=== PATIENT | female | born 1960 | race Caucasian/White ===

== ENCOUNTER 2016-06-25 12:45 | Inpatient (IN) | payer BC ==
[~2016-06-25] VITALS: Ht 170.2 cm; Wt 103.1 kg
[2016-06-25 13:45] LABS: BASO % 1 % (0-3); EOS % 1 % (0-3); HEMATOCRIT 44.1 % (36.0-47.0); LYMPH # 1.6 x10^3/uL (1.0-4.8); LYMPH % 26 % (24-48); MEAN CORPUSCULAR HEMOGLOBIN 31 pg (25-35); MEAN CORPUSCULAR HGB CONC 34 g/dL (31-37); MEAN CORPUSCULAR VOLUME 92 fL (79-100); MONO % 11 % (0-9); NEUT % 62 % (31-73); PLATELET COUNT 186 x10^3/uL (140-400); RED BLOOD COUNT 4.81 x10^6/uL (3.50-5.40); RED CELL DISTRIBUTION WIDTH 13.2 % (11.5-14.5); WHITE BLOOD COUNT 6.2 x10^3/uL (4.0-11.0)
[2016-06-25] MEDS ORDERED: PANTOPRAZOLE IV PUSH 40 MG VIAL. IVP ONE (13:45)
[2016-06-25] MEDS ORDERED: IV NORMAL SALINE 1000ML BAG 1,000 ML IV ONE (13:45)
--- NOTE | 2016-06-25 13:50 | PHYS DOC ---
Past Medical History Past Medical History: Arthritis, Depression, Diabetes-Type II, GERD, High Cholesterol, Hypertension, Hypothyroid, Other Additional Past Medical Histor: neuropathy; bond; Past Surgical History: Cholecystectomy, Other Additional Past Surgical Histo: right toe amputation Alcohol Use: Rarely Drug Use: None Adult General Chief Complaint Chief Complaint: BLOODY STOOL HPI HPI 56-year-old female who states she's had jet black stools for the last 12-24 hours with significant lower abdominal pain. She denies any shortness of breath or lightheadedness. She states she has never had this before. She does not take any blood thinners. She states she had a colonoscopy approximately a year ago that was normal. She denies any nausea or vomiting. She has not eaten or drank today. She denies any significant abdominal surgery. She has history of Galindo' s disease and has history of bilateral stents placed in her common iliacs. Review of Systems Review of Systems Constitutional: Denies fever or chills [] Eyes: Denies change in visual acuity, redness, or eye pain [] HENT: Denies nasal congestion or sore throat [] Respiratory: Denies cough or shortness of breath [] Cardiovascular: No additional information not addressed in HPI [] GI: Has abdominal pain, denies nausea, denies vomiting, denies bloody stools or diarrhea [] : Denies dysuria or hematuria [] Musculoskeletal: Denies back pain or joint pain [] Integument: Denies rash or skin lesions [] Neurologic: Denies headache, focal weakness or sensory changes [] Endocrine: Denies polyuria or polydipsia [] Current Medications Current Medications Current Medications Medications (Trade) Dose Ordered Sig/Adrianna Start Time Stop Time Status Last Admin Dose Admin Fentanyl Citrate (Fentanyl 2ml Vial) 50 mcg 1X ONCE 06/25/16 14:15 06/25/16 14:16 DC 06/25/16 14:31 50 MCG Iohexol (Omnipaque 300 Mg/ml) 75 ml 1X ONCE 06/25/16 14:15 06/25/16 14:16 DC 06/25/16 14:15 75 ML Pantoprazole Sodium (Protonix Vial) 80 mg 1X ONCE 06/25/16 13:45 06/25/16 13:46 DC 06/25/16 14:00 80 MG Sodium Chloride (Iv Sodium Chloride 0.9% 1000ml Bag) 1,000 ml @ 1,000 mls/hr 1X ONCE 06/25/16 13:45 06/25/16 14:44 DC 06/25/16 14:00 1,000 MLS/HR Allergies Allergies Allergies Coded Allergies Type Severity Reaction Last Updated Verified Sulfa (Sulfonamide Antibiotics) Allergy Intermediate hives 06/25/16 Yes Physical Exam Physical Exam Constitutional: Well developed, well nourished, no acute distress, non-toxic appearance. [] HENT: Normocephalic, atraumatic, bilateral external ears normal, oropharynx moist, no oral exudates, nose normal. [] Eyes: PERRLA, EOMI, conjunctiva normal, no discharge. [] Neck: Normal range of motion, no tenderness, supple, no stridor. [] Cardiovascular:Heart rate regular rhythm, no murmur [] Lungs & Thorax: Bilateral breath sounds clear to auscultation [] Abdomen: Bowel sounds normal, soft, lower abdominal tenderness, no masses, no pulsatile masses. [] Skin: Warm, dry, no erythema, no rash. [] Back: No tenderness, no CVA tenderness. [] Extremities: No tenderness, no cyanosis, no clubbing, ROM intact, no edema. [] Neurologic: Alert and oriented X 3, normal motor function, normal sensory function, no focal deficits noted. [] Psychologic: Affect normal, judgement normal, mood normal. [] Current Patient Data Vital Signs Vital Signs Date Time Temp Pulse Resp B/P Pulse Ox O2 Delivery O2 Flow Rate FiO2 06/25/16 12:52 97.4 91 20 160/87 98 Room Air 97.4 Lab Values Laboratory Tests Test 06/25/16 13:20 06/25/16 13:40 White Blood Count 6.2x10^3/uL (4.0-11.0) Red Blood Count 4.81x10^6/uL (3.50-5.40) Hemoglobin 15.0g/dL (12.0-15.5) Hematocrit 44.1% (36.0-47.0) Mean Corpuscular Volume 92fL (79-100) Mean Corpuscular Hemoglobin 31pg (25-35) Mean Corpuscular Hemoglobin Concent 34g/dL (31-37) Red Cell Distribution Width 13.2% (11.5-14.5) Platelet Count 186x10^3/uL (140-400) Neutrophils (%) (Auto) 62% (31-73) Lymphocytes (%) (Auto) 26% (24-48) Monocytes (%) (Auto) 11% (0-9) H Eosinophils (%) (Auto) 1% (0-3) Basophils (%) (Auto) 1% (0-3) Neutrophils # (Auto) 3.8x10^3uL (1.8-7.7) Lymphocytes # (Auto) 1.6x10^3/uL (1.0-4.8) Monocytes # (Auto) 0.7x10^3/uL (0.0-1.1) Eosinophils # (Auto) 0.0x10^3/uL (0.0-0.7) Basophils # (Auto) 0.0x10^3/uL (0.0-0.2) Sodium Level 138mmol/L (136-145) Potassium Level 3.5mmol/L (3.5-5.1) Chloride Level 99mmol/L (98-107) Carbon Dioxide Level 29mmol/L (21-32) Anion Gap 10 (6-14) Blood Urea Nitrogen 8mg/dL (7-20) Creatinine 0.9mg/dL (0.6-1.0) Estimated GFR (Cockcroft-Gault) 65.2 Glucose Level 109mg/dL (70-99) H Lactic Acid Level 1.8mmol/L (0.4-2.0) Calcium Level 9.3mg/dL (8.5-10.1) Total Bilirubin 0.9mg/dL (0.2-1.0) Direct Bilirubin 0.2mg/dL (0.0-0.2) Aspartate Amino Transferase (AST) 50U/L (15-37) H Alanine Aminotransferase (ALT) 69U/L (14-59) H Alkaline Phosphatase 88U/L (46-116) Total Protein 7.7g/dL (6.4-8.2) Albumin 4.2g/dL (3.4-5.0) Lipase 114U/L (73-393) Stool Occult Blood Negative (NEG) Laboratory Tests 06/25/16 13:20 Laboratory Tests 06/25/16 13:20 EKG EKG [] Radiology/Procedures Radiology/Procedures REASON: abdominal pain PROCEDURE: ABD PELV W/ IV CONTRAST ONLY Indication abdominal pain and back pain. Axial images through the abdomen and pelvis were obtained. 75 cc of Omnipaque 300 was administered intravenously. No oral contrast was administered. Note is made of a previous examination almost 12 years ago. The lung bases are clear. There is a small periumbilical hernia containing only fat which appears uncomplicated. The liver appears unremarkable. The spleen is at the upper limits of normal in size. No pancreatic pathology is seen. Clips are noted in the gallbladder fossa. The adrenal glands and kidneys appear unremarkable. The patient has bilateral common iliac grafts. No definite flow is seen in either graft and no definite blood flow is seen below the takeoff of the renal arteries. There does appear to be some collateral flow in the common femoral arteries in both groins. Clinical correlation as to the likelihood of Leriche syndrome advised. There is suggested possible mild irregularity involving the rectosigmoid colon. Mild inflammation, colitis, in this area not excluded. No additional finding is seen. 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 Mild spondylolisthesis at L5-S1 noted the appendix is seen in the right lower quadrant and appears normal IMPRESSION: The patient has common iliac grafts however no definite flow is seen in either graft and no definite flow is seen in the abdominal aorta below the takeoff of the renal arteries. Some collateral flow is seen in the common femoral arteries in both groins. Possible mild rectosigmoid inflammatory changes (colitis). The finding is not certain. Clinical correlation advised Course & Med Decision Making Course & Med Decision Making Pertinent Labs and Imaging studies reviewed. (See chart for details) 56-year-old female with complaint of dark stools has a Hemoccult that is negative. Her hemoglobin is 15. Patient does not have any symptoms of anemia. Her physical exam is benign besides some mild lower abdominal pain. She denies any nausea or vomiting. Laboratory workup was unrevealing. CT of her abdomen and pelvis with IV contrast demonstrated no definite flow in the common iliac grafts and no definite flow seen in the abdominal aorta below the take off of the renal arteries. There is some collateral flow seen in the common femoral arteries in both groins. Patient has warm distal extremities and good palpable DP pulse bilaterally. I discussed these findings with the vascular surgeon, Dr. Barker , who stated the patient should have a CTA of the abdomen and pelvis per protocol had a lactate drawn. I discussed the need to admit the patient with Dr. Sierra, who agreed with this assessment and plan. Her serum lactate is not elevated which places her at a low risk for mesenteric ischemia. A CTA of her abdomen and pelvis was ordered and will be received during her hospital stay. Dragon Disclaimer Dragon Disclaimer This electronic medical record was generated, in whole or in part, using a voice recognition dictation system. Departure Departure Impression: Primary Impression: Abdominal pain Disposition: ADMITTED INPATIENT Admitting Physician: Jazz Sierra Condition: STABLE Referrals: ADONIS KERNS [facility] (PCP) YENNI CHOI DO Jun 25, 2016 13:50
[2016-06-25 13:52] LABS: NEG OBC FOB NEG; POS OBC FOB POS
[2016-06-25 13:58] LABS: CALCIUM 9.3 mg/dL (8.5-10.1); CREATININE 0.9 mg/dL (0.6-1.0); GFR 65.2; POTASSIUM 3.5 mmol/L (3.5-5.1)
[2016-06-25] MEDS ORDERED: IOHEXOL 300 MG/ML 75 ML VIAL IV ONE (14:15)
[2016-06-25] MEDS ORDERED: FENTANYL PF 100 MCG/2 ML VIAL. IV ONE (14:15)
[2016-06-25 14:20] LABS: ALBUMIN 4.2 g/dL (3.4-5.0); DIRECT BILIRUBIN 0.2 mg/dL (0.0-0.2); TOTAL BILIRUBIN 0.9 mg/dL (0.2-1.0); TOTAL PROTEIN 7.7 g/dL (6.4-8.2)
--- NOTE | 2016-06-25 15:31 | RAD ---
Indication abdominal pain and back pain. Axial images through the abdomen and pelvis were obtained. 75 cc of Omnipaque 300 was administered intravenously. No oral contrast was administered. Note is made of a previous examination almost 12 years ago. The lung bases are clear. There is a small periumbilical hernia containing only fat which appears uncomplicated. The liver appears unremarkable. The spleen is at the upper limits of normal in size. No pancreatic pathology is seen. Clips are noted in the gallbladder fossa. The adrenal glands and kidneys appear unremarkable. The patient has bilateral common iliac grafts. No definite flow is seen in either graft and no definite blood flow is seen below the takeoff of the renal arteries. There does appear to be some collateral flow in the common femoral arteries in both groins. Clinical correlation as to the likelihood of Leriche syndrome advised. There is suggested possible mild irregularity involving the rectosigmoid colon. Mild inflammation, colitis, in this area not excluded. No additional finding is seen. 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 Mild spondylolisthesis at L5-S1 noted the appendix is seen in the right lower quadrant and appears normal IMPRESSION: The patient has common iliac grafts however no definite flow is seen in either graft and no definite flow is seen in the abdominal aorta below the takeoff of the renal arteries. Some collateral flow is seen in the common femoral arteries in both groins. Possible mild rectosigmoid inflammatory changes (colitis). The finding is not certain. Clinical correlation advised
[2016-06-25] MEDS ORDERED: ONDANSETRON PF 4 MG/2 ML VIAL. IV PRN ×2 (16:00→18:58)
[2016-06-25] MEDS ORDERED: FENTANYL PF 100 MCG/2 ML VIAL. IV PRN (16:00)
[2016-06-25 17:00] VITALS: BP 144/82
--- NOTE | 2016-06-25 17:21 | ACF ---
Admission Forms Criteria ABDOMINAL PAIN Clinical Indications for Admission to Inpatient Care (Place 'X' for any and all applicable criteria): Admission is indicated for ANY ONE of the following(1)(2)(3)(4)(5): [X]I. Inpatient admission required rather than observation care (Also use Abdominal Pain: Observation Care, as appropriate) because of ANY ONE of the following: [X]a) Severe pain requiring acute inpatient management [ ]b) Identification of etiology/finding that requires inpatient care (eg, aortic dissection, free air) [ ]c) Absent bowel sounds with complete ileus(6) [ ]d) Suspected toxic megacolon [ ]e) Severe electrolyte abnormalities requiring inpatient care [ ]f) High fever or infection requiring inpatient admission as indicated by ANY ONE of following(7)(8): [ ] i) Appropriate outpatient or observational care antimicrobial treatment unavailable, not effective, or not feasible [ ] ii) Documented bacteremia [ ] iii) Temperature > 104.9 degrees F (oral) [ ] iv) T >103.1 F (oral) or < 96.8 F(rectal) that does not respond to all emergency treatment measures [ ]g) Signs of intestinal obstruction [B] [ ]h) Hemodynamic instability [ ]i) IV fluid to replace significant ongoing losses (greater than 3 L/m2 per day) (12)(13) [ ]j) Percutaneous or open drainage (eg, abscess, biliary tract ) procedures [ ]k) Parenteral nutrition regimen that must be implemented on inpatient basis [ ]l) Other condition,treatment or monitoring requiring inpatient admission. [ ]II. Peritoneal signs present [ ]III. Surgery needed that cannot be performed on an ambulatory basis. [ ]IV. Evaluation requires patient to not eat or drink for extended period ( eg, more than 24 hours). [ ]V. Contraindications and/or Inappropriate clinical situations for Observational Care in patients with abdominal pain, when ANY ONE of the following is required: [ ]a) Thorough evaluation is required to prevent catastrophic events due to delays in diagnosing (e.g.Mesenteric ischemia) 1,3 [ ]b) Patient with severe pathology or with chronic symptoms unlikely to improve in the ED stay (3) [ ]. General contraindications and/or Inappropriate clinical situations for Observational Care in patients with abdominal pain, when ANY ONE of the following is required: [ ]a) Prediction of prolongation of LOS based on ANY ONE of the following may be considered as a contraindication for observational care 2, 3, 4, 5, 6, 7, 8, 9, 10, 11 [ ]i) Age > 65 yrs. [ ]ii) Patient arriving by ambulance [ ]iii) Patient with high acuity [ ]iv) Patient requiring vital sign monitoring [ ]v) Patient on IV medication [ ]b) Systolic blood pressures 180mmHg 3,12 [ ]c) Patient with altered mental status including delirium and other alteration of consciousness, (3) [ ]d) Patient whose discharge disposition will be to a usp home or rehabilitation home should not be managed in Emergency Department Observation Unit. CMS rule requires 3 days hospital stay before such placement.3,13 [ ]e) Patient with failure to thrive due to broad array of etiologies 3,16,17 [ ]f) Inability to ambulate 3,14 Extended stay beyond goal length of stay may be needed for(2)(3): [ ]a) Persistent abdominal pain with suspected intra-abdominal process [ ]b) Diagnosed condition requiring continued stay (e.g., pancreatitis, complicated diverticulitis) [ ]c) Surgery (e.g., colectomy) The original [facility] content created by [employer] has been revised. The portions of the content which have been revised are identified through the use of italic text or in bold, and [facility] has neither reviewed nor approved the modified material.All other unmodified content is copyright [employer]. Please see references footnoted in the original [facility] edition 2016 Admission Criteria Met?: Yes SKY CURRAN Jun 25, 2016 17:21
[2016-06-25] MEDS ORDERED: PNEUMOCOCCAL VAX SCREEN BY RX. MC ONE (18:15)
[2016-06-25] MEDS ORDERED: OMEP20TA PO (18:30)
[2016-06-25] MEDS ORDERED: ATOR40TA59 PO (18:30)
[2016-06-25] MEDS ORDERED: HYDR-2666 PO (18:30)
[2016-06-25] MEDS ORDERED: ACET1TAB46 PO (18:30)
[2016-06-25] MEDS ORDERED: AMLO5TAB2 PO (18:30)
[2016-06-25] MEDS ORDERED: CITA40TA5 PO (18:30)
[2016-06-25] MEDS ORDERED: LEVO137T3 PO (18:30)
[2016-06-25] MEDS ORDERED: HYDR25TA9 PO (18:30)
[2016-06-25] MEDS ORDERED: MULT-230 PO (18:30)
[2016-06-25] MEDS ORDERED: ASPI-482 PO (18:30)
[2016-06-25] MEDS ORDERED: CALC1TAB PO (18:30)
[2016-06-25] MEDS ORDERED: GABA-586 PO (18:30)
[2016-06-25 19:00] VITALS: BP 151/87
[2016-06-25] MEDS ORDERED: ACETAMINOPHEN 325 MG TABLET. PO PRN (19:00)
[2016-06-25] MEDS ORDERED: PNEUMOC CONJ VACC 23-VALENT 0.5 ML VIAL. VAX IM ONE (19:00)
--- NOTE | 2016-06-25 19:42 | PDOC1 ---
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 Amaya at [facility], comes in to ER bec of epigastric pain, melena and back pain, Denies NSAID use or ASA but looking at home med (if reliable list) is on ASA 81, She follows with PCP, always checks pulses in her feet and they are palpable and warm. CT abd was done bec of the melena and athe abd pain which showed: IMPRESSION: The patient has common iliac grafts however no definite flow is seen in either graft and no definite flow is seen in the abdominal aorta below the takeoff of the renal arteries. Some collateral flow is seen in the common femoral arteries in both groins. Possible mild rectosigmoid inflammatory changes (colitis). The finding is not certain. Clinical correlation advised SO bec of the absence of flow to the ilaics, pt admitted with vasc sx consult Pt feels fine aside from the epigastric pain and back pain - she thinks she might be coming down with kidney infection She usually does not like doctors or does notw ant to stay long in hospital. She is rather very pleasant Unfortunately she does cont to smoke still Past Medical History Cardiovascular: HTN Heme/Onc: Other (buerger's dse) Psych: Depression Musculoskeletal: low back pain Past Surgical History Past Surgical History: Other (stents in iliac arteries) Family History Family History: No Significant Social History Smoke: 1 pack per day ALCOHOL: occassional Drugs: None Current Problem List Problem List Problems Medical Problems: (1) Abdominal pain Status: Acute Problems: Current Medications Current Medications Current Medications Sodium Chloride (Iv Sodium Chloride 0.9% 1000ml Bag) 1,000 ml @ 1,000 mls/hr 1X ONCE IV Last administered on 06/25/16 14:00; Start 06/25/16 at 13:45; Stop 06/25/16 at 14:44; Status DC Pantoprazole Sodium (Protonix Vial) 80 mg 1X ONCE IVP Last administered on 14:00; Start 06/25/16 at 13:45; Stop 06/25/16 at 13:46; Status DC Iohexol (Omnipaque 300 Mg/ml) 75 ml 1X ONCE IV Last administered on 06/25/16t 14:15; Start 06/25/16 at 14:15; Stop 06/25/16 at 14:16; Status DC Fentanyl Citrate (Fentanyl 2ml Vial) 50 mcg 1X ONCE IV Last administered on t 14:31; Start 06/25/16 at 14:15; Stop 06/25/16 at 14:16; Status DC Ondansetron HCl (Zofran) 4 mg PRN Q8HRS PRN IV NAUSEA/VOMITING; Start 06/25/16 at 16:00; Stop 06/25/16 at 18:59; Status DC Fentanyl Citrate (Fentanyl 2ml Vial) 50 mcg PRN Q2HR PRN IV PAIN; Start at 16:00; Stop 06/26/16 at 15:59 Pneumococcal Polyvalent Vaccine (Do NOT chart on this placeholder) 1 each 1X ONCE MC ; Start 06/25/16 at 18:15; Stop 06/25/16 at 18:16; Status UNV Pneumococcal Polyvalent Vaccine (Pneumovax 23) 0.5 ml ONCE ONCE VAX IM ; Start 06/25/16 at 19:00; Stop 06/25/16 at 19:01; Status DC Ondansetron HCl (Zofran) 4 mg PRN Q6HRS PRN IV NAUSEA/VOMITING; Start 06/25/16 at 18:58 Acetaminophen (Tylenol) 650 mg PRN Q6HRS PRN PO MILD PAIN / TEMP; Start at 19:00 Amlodipine Besylate (Norvasc) 5 mg DAILY PO ; Start 06/26/16 at 09:00 Aspirin (Ecotrin) 81 mg DAILY PO ; Start 06/26/16 at 09:00 Atorvastatin Calcium (Lipitor) 40 mg HS PO ; Start 06/25/16 at 21:00 Gabapentin (Neurontin) 300 mg BID PO ; Start 06/25/16 at 21:00 Hydrochlorothiazide (Hydrodiuril) 25 mg DAILY PO ; Start 06/26/16 at 09:00 Acetaminophen/ Hydrocodone Bitart (Lortab 5/325) 1 tab PRN TID PRN PO PAIN; Start 06/25/16 at 19:00 Levothyroxine Sodium (Synthroid) 137 mcg DAILYAC PO ; Start 06/26/16 at 07:30 Acetaminophen (Tylenol) 1,000 mg QHS PO ; Start 06/25/16 at 21:00 Calcium/Vitamin D (Oscal D 500mg/ 200uts) 1 tab DAILY PO ; Start 06/26/16 at 08: 00 Citalopram Hydrobromide (Celexa) 40 mg DAILY PO ; Start 06/26/16 at 09:00 Multivitamins (Thera M Plus) 1 tab DAILY PO ; Start 06/26/16 at 09:00 Pantoprazole Sodium (Protonix) 40 mg DAILYAC PO ; Start 06/25/16 at 19:15 Diphenhydramine HCl (Benadryl) 50 mg QHS PO ; Start 06/25/16 at 21:00 Active Scripts Active Reported One Daily Women's (Multivit With Calcium,Iron,Min) 1 Each Tablet 1 Each PO DAILY Caltrate 600 + D Tablet (Calcium Carbonate/Vitamin D3) 1 Each Tablet 1 Each PO DAILY Aspir 81 (Aspirin) 81 Mg Tablet. 81 Mg PO DAILY Hydrocodone-Apap 5-325 (Hydrocodone Bit/Acetaminophen) 1 Each Tablet 1 Tab PO PRN TID PRN Gabapentin 300 Mg Capsule 300 Mg PO BID Citalopram Hbr (Citalopram Hydrobromide) 40 Mg Tablet 40 Mg PO DAILY Amlodipine Besylate 5 Mg Tablet 5 Mg PO DAILY Levothyroxine Sodium 137 Mcg Tablet 137 Mcg PO DAILYAC Atorvastatin Calcium 40 Mg Tablet 40 Mg PO HS Omeprazole 20 Mg Tablet. 20 Mg PO BID Hydrochlorothiazide Tablet (Hydrochlorothiazide) 25 Mg Tablet 25 Mg PO DAILY Acetaminophen Pm Caplet (Acetaminophen/Diphenhydramine) 1 Each Tablet 2 Tab PO HS Allergies Allergies: Coded Allergies: Sulfa (Sulfonamide Antibiotics) (Verified Allergy, Intermediate, hives, ) ROS Review of System back pain, epigastric pain, all else is neg (black stools) Physical Exam General: Alert, Oriented X3, Cooperative, No acute distress HEENT: Atraumatic, PERRLA, EOMI Lungs: Clear to auscultation, Normal air movement Heart: S1S2, RRR, no thrills, no rubs, no gallops, no murmurs Cardiovascular: S1, S2 Breasts: Normal Abdomen: Normal bowel sounds, Soft, No tenderness, No hepatosplenomegaly, No masses Rectal Exam: not examined, mass PELVIC: Nml ext genitalia Extremities: No clubbing, No cyanosis, No edema, Normal pulses, No tenderness/ swelling Skin: No rashes, No breakdown, No significant lesion Neuro: Normal gait, Normal speech, Strength at 5/5 X4 ext, Normal tone, Sensation intact, Cranial nerves 3-12 NL, Reflexes 2+ Psych/Mental Status: Mental status NL, Mood NL Vitals Vitals Vital Signs Date Time Temp Pulse Resp B/P Pulse Ox O2 Delivery O2 Flow Rate FiO2 06/25/16 17:55 Room Air 06/25/16 17:00 97.7 67 20 144/82 93 97.7 Labs Labs Laboratory Tests Test 06/25/16 13:20 06/25/16 13:40 White Blood Count 6.2x10^3/uL (4.0-11.0) Red Blood Count 4.81x10^6/uL (3.50-5.40) Hemoglobin 15.0g/dL (12.0-15.5) Hematocrit 44.1% (36.0-47.0) Mean Corpuscular Volume 92fL (79-100) Mean Corpuscular Hemoglobin 31pg (25-35) Mean Corpuscular Hemoglobin Concent 34g/dL (31-37) Red Cell Distribution Width 13.2% (11.5-14.5) Platelet Count 186x10^3/uL (140-400) Neutrophils (%) (Auto) 62% (31-73) Lymphocytes (%) (Auto) 26% (24-48) Monocytes (%) (Auto) 11% (0-9) Eosinophils (%) (Auto) 1% (0-3) Basophils (%) (Auto) 1% (0-3) Neutrophils # (Auto) 3.8x10^3uL (1.8-7.7) Lymphocytes # (Auto) 1.6x10^3/uL (1.0-4.8) Monocytes # (Auto) 0.7x10^3/uL (0.0-1.1) Eosinophils # (Auto) 0.0x10^3/uL (0.0-0.7) Basophils # (Auto) 0.0x10^3/uL (0.0-0.2) Sodium Level 138mmol/L (136-145) Potassium Level 3.5mmol/L (3.5-5.1) Chloride Level 99mmol/L (98-107) Carbon Dioxide Level 29mmol/L (21-32) Anion Gap 10 (6-14) Blood Urea Nitrogen 8mg/dL (7-20) Creatinine 0.9mg/dL (0.6-1.0) Estimated GFR (Cockcroft-Gault) 65.2 Glucose Level 109mg/dL (70-99) Lactic Acid Level 1.8mmol/L (0.4-2.0) Calcium Level 9.3mg/dL (8.5-10.1) Total Bilirubin 0.9mg/dL (0.2-1.0) Direct Bilirubin 0.2mg/dL (0.0-0.2) Aspartate Amino Transf (AST/SGOT) 50U/L (15-37) Alanine Aminotransferase (ALT/SGPT) 69U/L (14-59) Alkaline Phosphatase 88U/L (46-116) Total Protein 7.7g/dL (6.4-8.2) Albumin 4.2g/dL (3.4-5.0) Lipase 114U/L (73-393) Stool Occult Blood Negative (NEG) Laboratory Tests Test 06/25/16 13:20 06/25/16 13:40 White Blood Count 6.2x10^3/uL (4.0-11.0) Red Blood Count 4.81x10^6/uL (3.50-5.40) Hemoglobin 15.0g/dL (12.0-15.5) Hematocrit 44.1% (36.0-47.0) Mean Corpuscular Volume 92fL (79-100) Mean Corpuscular Hemoglobin 31pg (25-35) Mean Corpuscular Hemoglobin Concent 34g/dL (31-37) Red Cell Distribution Width 13.2% (11.5-14.5) Platelet Count 186x10^3/uL (140-400) Neutrophils (%) (Auto) 62% (31-73) Lymphocytes (%) (Auto) 26% (24-48) Monocytes (%) (Auto) 11% (0-9) Eosinophils (%) (Auto) 1% (0-3) Basophils (%) (Auto) 1% (0-3) Neutrophils # (Auto) 3.8x10^3uL (1.8-7.7) Lymphocytes # (Auto) 1.6x10^3/uL (1.0-4.8) Monocytes # (Auto) 0.7x10^3/uL (0.0-1.1) Eosinophils # (Auto) 0.0x10^3/uL (0.0-0.7) Basophils # (Auto) 0.0x10^3/uL (0.0-0.2) Sodium Level 138mmol/L (136-145) Potassium Level 3.5mmol/L (3.5-5.1) Chloride Level 99mmol/L (98-107) Carbon Dioxide Level 29mmol/L (21-32) Anion Gap 10 (6-14) Blood Urea Nitrogen 8mg/dL (7-20) Creatinine 0.9mg/dL (0.6-1.0) Estimated GFR (Cockcroft-Gault) 65.2 Glucose Level 109mg/dL (70-99) Lactic Acid Level 1.8mmol/L (0.4-2.0) Calcium Level 9.3mg/dL (8.5-10.1) Total Bilirubin 0.9mg/dL (0.2-1.0) Direct Bilirubin 0.2mg/dL (0.0-0.2) Aspartate Amino Transf (AST/SGOT) 50U/L (15-37) Alanine Aminotransferase (ALT/SGPT) 69U/L (14-59) Alkaline Phosphatase 88U/L (46-116) Total Protein 7.7g/dL (6.4-8.2) Albumin 4.2g/dL (3.4-5.0) Lipase 114U/L (73-393) Stool Occult Blood Negative (NEG) VTE Prophylaxis Ordered VTE Prophylaxis Devices: Contraindicated VTE Pharmacological Prophylaxi: Contraindicated Assessment/Plan Assessment/Plan 1. 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 Buerger';s dse with indwelling common iliac stents 3. SMoker, active 4. HTN, Depression NOS - chronic stable 5. Melena, new PLAn: Liquid diet NPO post [place] GI consult re melena CTA gallo to map out the arteries Vasc sx consult PPI Hold ASA sec to melena Check FOBT Dw ER DANAE Kendall Y Jun 25, 2016 19:42
[2016-06-25] MEDS ORDERED: NICOTINE 21MG PATCH. TD PRN (19:45)
[2016-06-25] MEDS: PANTOPRAZOLE 40 MG TABLET. PO SCH (21:51)
[2016-06-25] MEDS: GABAPENTIN 300 MG CAPSULE. PO SCH (21:51)
[2016-06-25] MEDS: ATORVASTATIN CALCIUM 40 MG TABLET. PO SCH (21:51)
[2016-06-25] MEDS: DIPHENHYDRAMINE HCL 25 MG CAPSULE PO SCH (21:52)
[2016-06-25] MEDS: ACETAMINOPHEN 500 MG TABLET PO SCH (21:52)
[2016-06-25 23:00] VITALS: BP 146/82
[2016-06-26 03:00] VITALS: BP 115/63
[2016-06-26 03:26] LABS: BILIRUBIN,URINE NEGATIVE (NEG); GLUCOSE,URINE NEGATIVE (NEG); NITRITE,URINE NEGATIVE (NEG); PROTEIN,URINE NEGATIVE (NEG-TRACE); UROBILINOGEN,URINE 0.2 mg/dL (0.2 mg/dL)
[2016-06-26 03:32] LABS: BACTERIA,URINE FEW /HPF (0-FEW); RBC,URINE 0 /HPF (0-2); SQUAMOUS EPITHELIAL CELL,UR MOD /LPF
[2016-06-26 05:06] LABS: BASO % 1 % (0-3); EOS % 2 % (0-3); HEMATOCRIT 41.8 % (36.0-47.0); HEMOGLOBIN 13.8 g/dL (12.0-15.5); LYMPH % 34 % (24-48); MEAN CORPUSCULAR HEMOGLOBIN 31 pg (25-35); MEAN CORPUSCULAR HGB CONC 33 g/dL (31-37); MEAN CORPUSCULAR VOLUME 93 fL (79-100); MONO % 13 % (0-9); NEUT % 51 % (31-73); PLATELET COUNT 160 x10^3/uL (140-400); RED BLOOD COUNT 4.51 x10^6/uL (3.50-5.40); RED CELL DISTRIBUTION WIDTH 13.3 % (11.5-14.5)
[2016-06-26 05:21] LABS: CREATININE 0.9 mg/dL (0.6-1.0); GFR 65.2; POTASSIUM 3.7 mmol/L (3.5-5.1)
[2016-06-26 07:00] VITALS: BP 137/81
[2016-06-26] MEDS ORDERED: ASPIRIN ENTERIC COATED 81 MG TABLET.DR. PO SCH (09:00)
[2016-06-26] MEDS ORDERED: CONTRAST GIVEN MC PRN (09:00)
[2016-06-26] MEDS: LIDOCAINE (700MG/PATCH) PATCH. TD SCH (09:00)
--- NOTE | 2016-06-26 09:18 | PDOC2 ---
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 Reports h/o diarrhea beginning Sunday night w/ diffuse abd cramping and radiation to bilateral flanks. On Sunday night had black tarry stool. Was seen at an urgent care yesterday, told hemoccult was positive, admitted through the ER. Labs unremarkable here including normal Hgb, normal BUN, and negative hemoccult. CT A/P showed common iliac grafts - no definite flow is seen in either graft, no definite flow is seen in the abdominal aorta below the takeoff of the renal arteries, and some collateral flow is seen in the common femoral arteries in both groins. Also note possible mild rectosigmoid inflammatory changes (colitis, although not certain). No recurrence of black stools and pain is better. Additional h/o GERD controlled w/ omeprazole QD. No previous EGD. Believes normal colonoscopy within the past 10 years. To have CTA today. 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, HTN, DM, depression, hypothyroidism, cholecystectomy FH: Family History: No pertinent hx (deneis GI cancers) Social History: Smoke: <1 pack per day ALCOHOL: occassional Drugs: None ROS: GEN: Denies fevers, chills, sweats HEENT: Denies blurred vision, sore throat CV: Denies chest pain RESP: Denies shortness of air, cough GI: Per HPI : Denies hematuria, dysuria ENDO: Denies weight changes NEURO: Denies confusion, dizziness MSK: leg pain SKIN: Denies jaundice, pruritus VItals: Vitals: Vital Signs Date Time Temp Pulse Resp B/P Pulse Ox O2 Delivery O2 Flow Rate FiO2 06/26/16 03:00 97.2 63 18 115/63 94 Room Air 97.2 Labs: Labs: Laboratory Tests Test 06/25/16 13:20 06/25/16 13:40 06/26/16 00:30 06/26/16 03:47 White Blood Count 6.2x10^3/uL (4.0-11.0) 6.0x10^3/uL (4.0-11.0) Red Blood Count 4.81x10^6/uL (3.50-5.40) 4.51x10^6/uL (3.50-5.40) Hemoglobin 15.0g/dL (12.0-15.5) 13.8g/dL (12.0-15.5) Hematocrit 44.1% (36.0-47.0) 41.8% (36.0-47.0) Mean Corpuscular Volume 92fL (79-100) 93fL (79-100) Mean Corpuscular Hemoglobin 31pg (25-35) 31pg (25-35) Mean Corpuscular Hemoglobin Concent 34g/dL (31-37) 33g/dL (31-37) Red Cell Distribution Width 13.2% (11.5-14.5) 13.3% (11.5-14.5) Platelet Count 186x10^3/uL (140-400) 160x10^3/uL (140-400) Neutrophils (%) (Auto) 62% (31-73) 51% (31-73) Lymphocytes (%) (Auto) 26% (24-48) 34% (24-48) Monocytes (%) (Auto) 11% (0-9) 13% (0-9) Eosinophils (%) (Auto) 1% (0-3) 2% (0-3) Basophils (%) (Auto) 1% (0-3) 1% (0-3) Neutrophils # (Auto) 3.8x10^3uL (1.8-7.7) 3.1x10^3uL (1.8-7.7) Lymphocytes # (Auto) 1.6x10^3/uL (1.0-4.8) 2.0x10^3/uL (1.0-4.8) Monocytes # (Auto) 0.7x10^3/uL (0.0-1.1) 0.8x10^3/uL (0.0-1.1) Eosinophils # (Auto) 0.0x10^3/uL (0.0-0.7) 0.1x10^3/uL (0.0-0.7) Basophils # (Auto) 0.0x10^3/uL (0.0-0.2) 0.0x10^3/uL (0.0-0.2) Sodium Level 138mmol/L (136-145) 144mmol/L (136-145) Potassium Level 3.5mmol/L (3.5-5.1) 3.7mmol/L (3.5-5.1) Chloride Level 99mmol/L (98-107) 106mmol/L (98-107) Carbon Dioxide Level 29mmol/L (21-32) 30mmol/L (21-32) Anion Gap 10 (6-14) 8 (6-14) Blood Urea Nitrogen 8mg/dL (7-20) 8mg/dL (7-20) Creatinine 0.9mg/dL (0.6-1.0) 0.9mg/dL (0.6-1.0) Estimated GFR (Cockcroft-Gault) 65.2 65.2 Glucose Level 109mg/dL (70-99) 117mg/dL (70-99) Lactic Acid Level 1.8mmol/L (0.4-2.0) Calcium Level 9.3mg/dL (8.5-10.1) 9.0mg/dL (8.5-10.1) Total Bilirubin 0.9mg/dL (0.2-1.0) Direct Bilirubin 0.2mg/dL (0.0-0.2) Aspartate Amino Transf (AST/SGOT) 50U/L (15-37) Alanine Aminotransferase (ALT/SGPT) 69U/L (14-59) Alkaline Phosphatase 88U/L (46-116) Total Protein 7.7g/dL (6.4-8.2) Albumin 4.2g/dL (3.4-5.0) Lipase 114U/L (73-393) Stool Occult Blood Negative (NEG) Urine Collection Type Unknown Urine Color Yellow Urine Clarity Clear Urine pH 7.0 Urine Specific [place] 1.020 Urine Protein Negativemg/dL (NEG-TRACE) Urine Glucose (UA) Negativemg/dL (NEG) Urine Ketones (Stick) Negativemg/dL (NEG) Urine Blood Negative (NEG) Urine Nitrite Negative (NEG) Urine Bilirubin Negative (NEG) Urine Urobilinogen Dipstick 0.2mg/dL (0.2 mg/dL) Urine Leukocyte Esterase Small (NEG) Urine RBC 0/HPF (0-2) Urine WBC 1-4/HPF (0-4) Urine Squamous Epithelial Cells Mod/LPF Urine Bacteria Few/HPF (0-FEW) Urine Mucus Slight/LPF Allergies: Coded Allergies: Sulfa (Sulfonamide Antibiotics) (Verified Allergy, Intermediate, hives, ) Medications: Current Medications Medications (Trade) Dose Ordered Sig/Adrianna Route PRN Reason Start Time Stop Time Status Last Admin Dose Admin Sodium Chloride (Iv Sodium Chloride 0.9% 1000ml Bag) 1,000 ml @ 1,000 mls/hr 1X ONCE IV 06/25/16 13:45 06/25/16 14:44 DC 06/25/16 14:00 Pantoprazole Sodium (Protonix Vial) 80 mg 1X ONCE IVP 06/25/16 13:45 06/25/16 13:46 DC 06/25/16 14:00 Iohexol (Omnipaque 300 Mg/ml) 75 ml 1X ONCE IV 06/25/16 14:15 06/25/16 14:16 DC 06/25/16 14:15 Fentanyl Citrate (Fentanyl 2ml Vial) 50 mcg 1X ONCE IV 06/25/16 14:15 06/25/16 14:16 DC 06/25/16 14:31 Fentanyl Citrate (Fentanyl 2ml Vial) 50 mcg PRN Q2HR PRN IV PAIN 06/25/16 16:00 06/26/16 15:59 06/25/16 22:13 Pneumococcal Polyvalent Vaccine (Pneumovax 23) 0.5 ml ONCE ONCE VAX IM 06/25/16 19:00 06/25/16 19:01 DC 06/25/16 21:56 Atorvastatin Calcium (Lipitor) 40 mg HS PO 06/25/16 21:00 06/25/16 21:51 Gabapentin (Neurontin) 300 mg BID PO 06/25/16 21:00 06/25/16 21:51 Acetaminophen (Tylenol) 1,000 mg QHS PO 06/25/16 21:00 06/25/16 21:52 Pantoprazole Sodium (Protonix) 40 mg DAILYAC PO 06/25/16 19:15 06/25/16 21:51 Diphenhydramine HCl (Benadryl) 50 mg QHS PO 06/25/16 21:00 06/25/16 21:52 Imaging: Imaging: CT A/P IMPRESSION: The patient has common iliac grafts however no definite flow is seen in either graft and no definite flow is seen in the abdominal aorta below the takeoff of the renal arteries. Some collateral flow is seen in the common femoral arteries in both groins. Possible mild rectosigmoid inflammatory changes (colitis). The finding is not certain. Clinical correlation advised. PE: GEN: NAD HEENT: atraumatic, PERRL LUNGS: CTAB HEART: RRR ABD: NABS, S/ND, vaguely tender diffusely w/o guarding EXTREMITY: No edema, right toe amputations SKIN: No rashes, no jaundice NEURO/PSYCH: A & O 3 A/P: A/P: Melena, diarrhea, abd pain -diarrhea onset 06/23, dark tarry stool on 06/24, was told heme + at urgent care on 06/25, admitted here -dark stool has not recurred -abd pain improved -Hgb, BUN WNL, also heme neg here -s/p cholecystectomy GERD -improved w/ PPI at home, no previous EGD CRC screen -reports previously normal colonoscopy Buerger's disease -s/p iliac stents, toe amputations, on ASA 81mg -CT as above -still smokes, has had leg pain recently Abnormal CT A/P -possible mild rectosigmoid inflammatory changes -- Await CTA. Continue PPI and monitor symptoms, labs although symptoms improved w/ stable labs now. OSITO MICHAEL Jun 26, 2016 09:18
[2016-06-26] MEDS ORDERED: IOHEXOL 350 MG/ML 100ML VIAL. IV ONE (09:30)
--- NOTE | 2016-06-26 09:39 | PDOC2 ---
CONSULT Date of Consult Date of Consult DATE: 06/26/16 TIME: 09:35 Past Medical History Cardiovascular: HTN Heme/Onc: Other (buerger's dse) Psych: Depression Musculoskeletal: low back pain Past Surgical History Past Surgical History: Other (stents in iliac arteries) Family History Family History: No Significant Social History <1 pack per day ALCOHOL: occassional Drugs: None Current Problem List Problem List Problems Medical Problems: (1) Abdominal pain Status: Acute Current Medications Current Medications Current Medications Sodium Chloride (Iv Sodium Chloride 0.9% 1000ml Bag) 1,000 ml @ 1,000 mls/hr 1X ONCE IV Last administered on 06/25/16 14:00; Start 06/25/16 at 13:45; Stop 06/25/16 at 14:44; Status DC Pantoprazole Sodium (Protonix Vial) 80 mg 1X ONCE IVP Last administered on 14:00; Start 06/25/16 at 13:45; Stop 06/25/16 at 13:46; Status DC Iohexol (Omnipaque 300 Mg/ml) 75 ml 1X ONCE IV Last administered on 06/25/16 14:15; Start 06/25/16 at 14:15; Stop 06/25/16 at 14:16; Status DC Fentanyl Citrate (Fentanyl 2ml Vial) 50 mcg 1X ONCE IV Last administered on 14:31; Start 06/25/16 at 14:15; Stop 06/25/16 at 14:16; Status DC Ondansetron HCl (Zofran) 4 mg PRN Q8HRS PRN IV NAUSEA/VOMITING; Start 06/25/16 at 16:00; Stop 06/25/16 at 18:59; Status DC Fentanyl Citrate (Fentanyl 2ml Vial) 50 mcg PRN Q2HR PRN IV PAIN Last administered on 06/25/16 22:13; Start 06/25/16 at 16:00; Stop 06/26/16 at 15:59 Pneumococcal Polyvalent Vaccine (Do NOT chart on this placeholder) 1 each 1X ONCE MC ; Start 06/25/16 at 18:15; Stop 06/25/16 at 18:16; Status UNV Pneumococcal Polyvalent Vaccine (Pneumovax 23) 0.5 ml ONCE ONCE VAX IM Last administered on 06/25/16 21:56; Start 06/25/16 at 19:00; Stop 06/25/16 at 19:01 ; Status DC Ondansetron HCl (Zofran) 4 mg PRN Q6HRS PRN IV NAUSEA/VOMITING; Start 06/25/16 at 18:58 Acetaminophen (Tylenol) 650 mg PRN Q6HRS PRN PO MILD PAIN / TEMP; Start at 19:00 Amlodipine Besylate (Norvasc) 5 mg DAILY PO ; Start 06/26/16 at 09:00 Aspirin (Ecotrin) 81 mg DAILY PO ; Start 06/26/16 at 09:00; Stop 06/26/16 at 09: 00; Status DC Atorvastatin Calcium (Lipitor) 40 mg HS PO Last administered on 06/25/16 21:51 ; Start 06/25/16 at 21:00 Gabapentin (Neurontin) 300 mg BID PO Last administered on 06/25/16 21:51; Start 06/25/16 at 21:00 Hydrochlorothiazide (Hydrodiuril) 25 mg DAILY PO ; Start 06/26/16 at 09:00 Acetaminophen/ Hydrocodone Bitart (Lortab 5/325) 1 tab PRN TID PRN PO PAIN; Start 06/25/16 at 19:00 Levothyroxine Sodium (Synthroid) 137 mcg DAILYAC PO ; Start 06/26/16 at 07:30 Acetaminophen (Tylenol) 1,000 mg QHS PO Last administered on 06/25/16 21:52; Start 06/25/16 at 21:00 Calcium/Vitamin D (Oscal D 500mg/ 200uts) 1 tab DAILY PO ; Start 06/26/16 at 08: 00 Citalopram Hydrobromide (Celexa) 40 mg DAILY PO ; Start 06/26/16 at 09:00 Multivitamins (Thera M Plus) 1 tab DAILY PO ; Start 06/26/16 at 09:00 Pantoprazole Sodium (Protonix) 40 mg DAILYAC PO Last administered on 06/25/16 21:51; Start 06/25/16 at 19:15 Diphenhydramine HCl (Benadryl) 50 mg QHS PO Last administered on 06/25/16 21: 52; Start 06/25/16 at 21:00 Lidocaine (Lidoderm) 1 patch DAILY TD ; Start 06/26/16 at 09:00 Nicotine (Nicoderm Cq 21mg) 1 patch PRN DAILY PRN TD SMOKING CESSATION; Start 06/25/16 at 19:45 Iohexol (Omnipaque 350 Mg/ml) 95 ml 1X ONCE IV ; Start 06/26/16 at 09:30; Stop 06/26/16 at 09:31 Info (Do NOT chart on this entry -- for MONITORING) 1 each PRN DAILY PRN MC SEE COMMENTS; Start 06/26/16 at 09:00; Stop 06/28/16 at 08:59 Active Scripts Active Reported One Daily Women's (Multivit With Calcium,Iron,Min) 1 Each Tablet 1 Each PO DAILY Caltrate 600 + D Tablet (Calcium Carbonate/Vitamin D3) 1 Each Tablet 1 Each PO DAILY Aspir 81 (Aspirin) 81 Mg Tablet. 81 Mg PO DAILY Hydrocodone-Apap 5-325 (Hydrocodone Bit/Acetaminophen) 1 Each Tablet 1 Tab PO PRN TID PRN Gabapentin 300 Mg Capsule 300 Mg PO BID Citalopram Hbr (Citalopram Hydrobromide) 40 Mg Tablet 40 Mg PO DAILY Amlodipine Besylate 5 Mg Tablet 5 Mg PO DAILY Levothyroxine Sodium 137 Mcg Tablet 137 Mcg PO DAILYAC Atorvastatin Calcium 40 Mg Tablet 40 Mg PO HS Omeprazole 20 Mg Tablet. 20 Mg PO BID Hydrochlorothiazide Tablet (Hydrochlorothiazide) 25 Mg Tablet 25 Mg PO DAILY Acetaminophen Pm Caplet (Acetaminophen/Diphenhydramine) 1 Each Tablet 2 Tab PO HS Allergies Allergies: Coded Allergies: Sulfa (Sulfonamide Antibiotics) (Verified Allergy, Intermediate, hives, ) Vitals VITALS Vital Signs Date Time Temp Pulse Resp B/P Pulse Ox O2 Delivery O2 Flow Rate FiO2 06/26/16 07:00 98.8 85 18 137/81 94 Room Air 98.8 Labs Labs Laboratory Tests Test 06/25/16 13:20 06/25/16 13:40 06/26/16 00:30 06/26/16 03:47 White Blood Count 6.2x10^3/uL (4.0-11.0) 6.0x10^3/uL (4.0-11.0) Red Blood Count 4.81x10^6/uL (3.50-5.40) 4.51x10^6/uL (3.50-5.40) Hemoglobin 15.0g/dL (12.0-15.5) 13.8g/dL (12.0-15.5) Hematocrit 44.1% (36.0-47.0) 41.8% (36.0-47.0) Mean Corpuscular Volume 92fL (79-100) 93fL (79-100) Mean Corpuscular Hemoglobin 31pg (25-35) 31pg (25-35) Mean Corpuscular Hemoglobin Concent 34g/dL (31-37) 33g/dL (31-37) Red Cell Distribution Width 13.2% (11.5-14.5) 13.3% (11.5-14.5) Platelet Count 186x10^3/uL (140-400) 160x10^3/uL (140-400) Neutrophils (%) (Auto) 62% (31-73) 51% (31-73) Lymphocytes (%) (Auto) 26% (24-48) 34% (24-48) Monocytes (%) (Auto) 11% (0-9) 13% (0-9) Eosinophils (%) (Auto) 1% (0-3) 2% (0-3) Basophils (%) (Auto) 1% (0-3) 1% (0-3) Neutrophils # (Auto) 3.8x10^3uL (1.8-7.7) 3.1x10^3uL (1.8-7.7) Lymphocytes # (Auto) 1.6x10^3/uL (1.0-4.8) 2.0x10^3/uL (1.0-4.8) Monocytes # (Auto) 0.7x10^3/uL (0.0-1.1) 0.8x10^3/uL (0.0-1.1) Eosinophils # (Auto) 0.0x10^3/uL (0.0-0.7) 0.1x10^3/uL (0.0-0.7) Basophils # (Auto) 0.0x10^3/uL (0.0-0.2) 0.0x10^3/uL (0.0-0.2) Sodium Level 138mmol/L (136-145) 144mmol/L (136-145) Potassium Level 3.5mmol/L (3.5-5.1) 3.7mmol/L (3.5-5.1) Chloride Level 99mmol/L (98-107) 106mmol/L (98-107) Carbon Dioxide Level 29mmol/L (21-32) 30mmol/L (21-32) Anion Gap 10 (6-14) 8 (6-14) Blood Urea Nitrogen 8mg/dL (7-20) 8mg/dL (7-20) Creatinine 0.9mg/dL (0.6-1.0) 0.9mg/dL (0.6-1.0) Estimated GFR (Cockcroft-Gault) 65.2 65.2 Glucose Level 109mg/dL (70-99) 117mg/dL (70-99) Lactic Acid Level 1.8mmol/L (0.4-2.0) Calcium Level 9.3mg/dL (8.5-10.1) 9.0mg/dL (8.5-10.1) Total Bilirubin 0.9mg/dL (0.2-1.0) Direct Bilirubin 0.2mg/dL (0.0-0.2) Aspartate Amino Transf (AST/SGOT) 50U/L (15-37) Alanine Aminotransferase (ALT/SGPT) 69U/L (14-59) Alkaline Phosphatase 88U/L (46-116) Total Protein 7.7g/dL (6.4-8.2) Albumin 4.2g/dL (3.4-5.0) Lipase 114U/L (73-393) Stool Occult Blood Negative (NEG) Urine Collection Type Unknown Urine Color Yellow Urine Clarity Clear Urine pH 7.0 Urine Specific [place] 1.020 Urine Protein Negativemg/dL (NEG-TRACE) Urine Glucose (UA) Negativemg/dL (NEG) Urine Ketones (Stick) Negativemg/dL (NEG) Urine Blood Negative (NEG) Urine Nitrite Negative (NEG) Urine Bilirubin Negative (NEG) Urine Urobilinogen Dipstick 0.2mg/dL (0.2 mg/dL) Urine Leukocyte Esterase Small (NEG) Urine RBC 0/HPF (0-2) Urine WBC 1-4/HPF (0-4) Urine Squamous Epithelial Cells Mod/LPF Urine Bacteria Few/HPF (0-FEW) Urine Mucus Slight/LPF Laboratory Tests Test 06/25/16 13:20 06/25/16 13:40 06/26/16 00:30 06/26/16 03:47 White Blood Count 6.2x10^3/uL (4.0-11.0) 6.0x10^3/uL (4.0-11.0) Red Blood Count 4.81x10^6/uL (3.50-5.40) 4.51x10^6/uL (3.50-5.40) Hemoglobin 15.0g/dL (12.0-15.5) 13.8g/dL (12.0-15.5) Hematocrit 44.1% (36.0-47.0) 41.8% (36.0-47.0) Mean Corpuscular Volume 92fL (79-100) 93fL (79-100) Mean Corpuscular Hemoglobin 31pg (25-35) 31pg (25-35) Mean Corpuscular Hemoglobin Concent 34g/dL (31-37) 33g/dL (31-37) Red Cell Distribution Width 13.2% (11.5-14.5) 13.3% (11.5-14.5) Platelet Count 186x10^3/uL (140-400) 160x10^3/uL (140-400) Neutrophils (%) (Auto) 62% (31-73) 51% (31-73) Lymphocytes (%) (Auto) 26% (24-48) 34% (24-48) Monocytes (%) (Auto) 11% (0-9) 13% (0-9) Eosinophils (%) (Auto) 1% (0-3) 2% (0-3) Basophils (%) (Auto) 1% (0-3) 1% (0-3) Neutrophils # (Auto) 3.8x10^3uL (1.8-7.7) 3.1x10^3uL (1.8-7.7) Lymphocytes # (Auto) 1.6x10^3/uL (1.0-4.8) 2.0x10^3/uL (1.0-4.8) Monocytes # (Auto) 0.7x10^3/uL (0.0-1.1) 0.8x10^3/uL (0.0-1.1) Eosinophils # (Auto) 0.0x10^3/uL (0.0-0.7) 0.1x10^3/uL (0.0-0.7) Basophils # (Auto) 0.0x10^3/uL (0.0-0.2) 0.0x10^3/uL (0.0-0.2) Sodium Level 138mmol/L (136-145) 144mmol/L (136-145) Potassium Level 3.5mmol/L (3.5-5.1) 3.7mmol/L (3.5-5.1) Chloride Level 99mmol/L (98-107) 106mmol/L (98-107) Carbon Dioxide Level 29mmol/L (21-32) 30mmol/L (21-32) Anion Gap 10 (6-14) 8 (6-14) Blood Urea Nitrogen 8mg/dL (7-20) 8mg/dL (7-20) Creatinine 0.9mg/dL (0.6-1.0) 0.9mg/dL (0.6-1.0) Estimated GFR (Cockcroft-Gault) 65.2 65.2 Glucose Level 109mg/dL (70-99) 117mg/dL (70-99) Lactic Acid Level 1.8mmol/L (0.4-2.0) Calcium Level 9.3mg/dL (8.5-10.1) 9.0mg/dL (8.5-10.1) Total Bilirubin 0.9mg/dL (0.2-1.0) Direct Bilirubin 0.2mg/dL (0.0-0.2) Aspartate Amino Transf (AST/SGOT) 50U/L (15-37) Alanine Aminotransferase (ALT/SGPT) 69U/L (14-59) Alkaline Phosphatase 88U/L (46-116) Total Protein 7.7g/dL (6.4-8.2) Albumin 4.2g/dL (3.4-5.0) Lipase 114U/L (73-393) Stool Occult Blood Negative (NEG) Urine Collection Type Unknown Urine Color Yellow Urine Clarity Clear Urine pH 7.0 Urine Specific [place] 1.020 Urine Protein Negativemg/dL (NEG-TRACE) Urine Glucose (UA) Negativemg/dL (NEG) Urine Ketones (Stick) Negativemg/dL (NEG) Urine Blood Negative (NEG) Urine Nitrite Negative (NEG) Urine Bilirubin Negative (NEG) Urine Urobilinogen Dipstick 0.2mg/dL (0.2 mg/dL) Urine Leukocyte Esterase Small (NEG) Urine RBC 0/HPF (0-2) Urine WBC 1-4/HPF (0-4) Urine Squamous Epithelial Cells Mod/LPF Urine Bacteria Few/HPF (0-FEW) Urine Mucus Slight/LPF Assessment/Plan Assessment/Plan Vascular consult dictated IMP: 1. 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 She is relatively sedentary 2. obesity 3. tobaccoism 4. melena Rec: f/u in our office. She will need aorto bilateral femoral bypass when indications warrant. Symptoms currently are not lifestyle limiting. Discouraged pt from smoking. RADHA HUNTLEY II, MD Jun 26, 2016 09:39
[2016-06-26] MEDS: CITALOPRAM 20 MG TABLET. PO SCH (09:55)
[2016-06-26] MEDS: GABAPENTIN 300 MG CAPSULE. PO SCH ×2 (09:55→21:10)
[2016-06-26] MEDS: LEVOTHYROXINE 137 MCG TABLET PO SCH (09:56)
[2016-06-26] MEDS: MULTIVITAMIN with MINERAL TABLET. PO SCH (09:56)
[2016-06-26] MEDS: AMLODIPINE BESYLATE 5 MG TABLET PO SCH (09:56)
[2016-06-26] MEDS: CALCIUM CARB/VIT D3 500/200 TABLET. PO SCH ×2 (09:56→10:02)
[2016-06-26] MEDS: PANTOPRAZOLE 40 MG TABLET. PO SCH (09:56)
[2016-06-26] MEDS: HYDROCHLOROTHIAZIDE 25 MG TABLET PO SCH (09:56)
[2016-06-26] MEDS: HYDROCODONE/APAP 5/325MG TABLET. PO PRN ×2 (10:05→19:35)
[2016-06-26 11:00] VITALS: BP 142/66
--- NOTE | 2016-06-26 11:48 | RAD ---
EXAM: Abdomen and pelvis CT angiogram with intravenous contrast. HISTORY: Epigastric pain. TECHNIQUE: Computed tomographic images of the abdomen and pelvis were obtained following the administration of 90 cc Omnipaque 350 intravenous contrast. Multiplanar reformatting was performed. Three-dimensional maximum intensity projection images were obtained. COMPARISON: 06/25/2016. FINDINGS: Evaluation of the lower thorax demonstrates slight right lower lobe bronchial wall thickening. There is a tiny nodular opacity within the right lower lobe due to volume averaging of adjacent pulmonary vessels. No suspicious pulmonary nodule is seen. There is no effusion. There is hepatomegaly and hepatic steatosis. No focal hepatic lesion is seen. The gallbladder is surgically absent. The pancreas is unremarkable. The spleen is mildly enlarged, measuring 13.4 cm. The adrenal glands and kidneys are unremarkable. There is a small fat-containing umbilical hernia. There is slight stranding within the herniated fat and ventral abdominal wall fat possibly due to a component of fat incarceration. The appendix is unremarkable. There is slight mucosal thickening involving the rectosigmoid junction, possibly due to peristalsis. The uterus and ovaries are unremarkable. The bladder is unremarkable. No pathologically enlarged lymph node is seen. There is grade 1 anterolisthesis of L5 on S1 with associated pars interarticularis defects. The angiographic portion of the exam demonstrates segmental occlusion of the aorta inferior to the origins of widely patent bilateral renal arteries. There is a tiny blush of contrast within the aorta inferior to the renal arteries. There are bilateral common iliac artery stents, both of which are nearly completely excluded. There is suggestion of trace flow within the stents. There is occlusion of the bilateral common iliac arteries distal to the stents, with reconstitution within widely patent bilateral internal and external iliac arteries. There are multiple metallic clips within the right inguinal region likely due to prior catheterization. There is a prominent superior mesenteric artery branch vessel coursing through the left upper quadrant to the epigastric vessels, likely continued into collateral flow. IMPRESSION: 1. 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 There is a tiny blush of contrast within the infrarenal abdominal aorta and stented portions of the common iliac arteries and there is reconstitution of flow within widely patent bilateral internal and external iliac arteries. This may be due to a component of collateral flow from a prominent superior mesenteric branch vessel and epigastric vessels. 2. Hepatomegaly and hepatic steatosis. 3. Small fat-containing umbilical hernia. There is stranding within the herniated fat and adjacent ventral abdominal wall fat which may be due to a component of incarceration. 4. Pars defects at L5-S1. 5. Slight mucosal thickening at the rectosigmoid junction, possibly due to peristalsis. The possibility of segmental colitis or intrinsic mucosal lesion is not completely excluded on this exam. Correlate with symptoms infertility and prior colonoscopy findings. 6. Mild splenomegaly. PQRS Compliance Statement: One or more of the following individualized dose reduction techniques were utilized for this examination: 1. Automated exposure control 2. Adjustment of the mA and/or kV according to patient size 3. Use of iterative reconstruction technique
--- NOTE | 2016-06-26 13:18 | PDOC ---
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 supportive care. History of Present Illness History of Present Illness pain 4/10 diarrhea, time 2 no fever no chills. Vitals Vitals Vital Signs Date Time Temp Pulse Resp B/P Pulse Ox O2 Delivery O2 Flow Rate FiO2 06/26/16 11:00 97.6 76 18 142/66 94 Room Air 97.6 Physical Exam General: Alert, Oriented X3, Cooperative, No acute distress Heart: Normal S1 Lungs: Clear Abdomen: Normal bowel sounds, Soft, No tenderness, No hepatosplenomegaly, No masses Extremities: No clubbing, No cyanosis, No edema, Normal pulses, No tenderness/ swelling Skin: No rashes, No breakdown, No significant lesion Labs LABS Laboratory Tests Test 06/25/16 13:20 06/25/16 13:40 06/25/16 18:40 06/26/16 00:30 White Blood Count 6.2x10^3/uL (4.0-11.0) Red Blood Count 4.81x10^6/uL (3.50-5.40) Hemoglobin 15.0g/dL (12.0-15.5) Hematocrit 44.1% (36.0-47.0) Mean Corpuscular Volume 92fL (79-100) Mean Corpuscular Hemoglobin 31pg (25-35) Mean Corpuscular Hemoglobin Concent 34g/dL (31-37) Red Cell Distribution Width 13.2% (11.5-14.5) Platelet Count 186x10^3/uL (140-400) Neutrophils (%) (Auto) 62% (31-73) Lymphocytes (%) (Auto) 26% (24-48) Monocytes (%) (Auto) 11% (0-9) Eosinophils (%) (Auto) 1% (0-3) Basophils (%) (Auto) 1% (0-3) Neutrophils # (Auto) 3.8x10^3uL (1.8-7.7) Lymphocytes # (Auto) 1.6x10^3/uL (1.0-4.8) Monocytes # (Auto) 0.7x10^3/uL (0.0-1.1) Eosinophils # (Auto) 0.0x10^3/uL (0.0-0.7) Basophils # (Auto) 0.0x10^3/uL (0.0-0.2) Sodium Level 138mmol/L (136-145) Potassium Level 3.5mmol/L (3.5-5.1) Chloride Level 99mmol/L (98-107) Carbon Dioxide Level 29mmol/L (21-32) Anion Gap 10 (6-14) Blood Urea Nitrogen 8mg/dL (7-20) Creatinine 0.9mg/dL (0.6-1.0) Estimated GFR (Cockcroft-Gault) 65.2 Glucose Level 109mg/dL (70-99) Lactic Acid Level 1.8mmol/L (0.4-2.0) Calcium Level 9.3mg/dL (8.5-10.1) Total Bilirubin 0.9mg/dL (0.2-1.0) Direct Bilirubin 0.2mg/dL (0.0-0.2) Aspartate Amino Transf (AST/SGOT) 50U/L (15-37) Alanine Aminotransferase (ALT/SGPT) 69U/L (14-59) Alkaline Phosphatase 88U/L (46-116) Total Protein 7.7g/dL (6.4-8.2) Albumin 4.2g/dL (3.4-5.0) Lipase 114U/L (73-393) Stool Occult Blood Negative (NEG) Clostridium difficile Toxin (PCR) Positive (Negative) Urine Collection Type Unknown Urine Color Yellow Urine Clarity Clear Urine pH 7.0 Urine Specific [place] 1.020 Urine Protein Negativemg/dL (NEG-TRACE) Urine Glucose (UA) Negativemg/dL (NEG) Urine Ketones (Stick) Negativemg/dL (NEG) Urine Blood Negative (NEG) Urine Nitrite Negative (NEG) Urine Bilirubin Negative (NEG) Urine Urobilinogen Dipstick 0.2mg/dL (0.2 mg/dL) Urine Leukocyte Esterase Small (NEG) Urine RBC 0/HPF (0-2) Urine WBC 1-4/HPF (0-4) Urine Squamous Epithelial Cells Mod/LPF Urine Bacteria Few/HPF (0-FEW) Urine Mucus Slight/LPF Test 3/27/17 03:47 White Blood Count 6.0x10^3/uL (4.0-11.0) Red Blood Count 4.51x10^6/uL (3.50-5.40) Hemoglobin 13.8g/dL (12.0-15.5) Hematocrit 41.8% (36.0-47.0) Mean Corpuscular Volume 93fL (79-100) Mean Corpuscular Hemoglobin 31pg (25-35) Mean Corpuscular Hemoglobin Concent 33g/dL (31-37) Red Cell Distribution Width 13.3% (11.5-14.5) Platelet Count 160x10^3/uL (140-400) Neutrophils (%) (Auto) 51% (31-73) Lymphocytes (%) (Auto) 34% (24-48) Monocytes (%) (Auto) 13% (0-9) Eosinophils (%) (Auto) 2% (0-3) Basophils (%) (Auto) 1% (0-3) Neutrophils # (Auto) 3.1x10^3uL (1.8-7.7) Lymphocytes # (Auto) 2.0x10^3/uL (1.0-4.8) Monocytes # (Auto) 0.8x10^3/uL (0.0-1.1) Eosinophils # (Auto) 0.1x10^3/uL (0.0-0.7) Basophils # (Auto) 0.0x10^3/uL (0.0-0.2) Sodium Level 144mmol/L (136-145) Potassium Level 3.7mmol/L (3.5-5.1) Chloride Level 106mmol/L (98-107) Carbon Dioxide Level 30mmol/L (21-32) Anion Gap 8 (6-14) Blood Urea Nitrogen 8mg/dL (7-20) Creatinine 0.9mg/dL (0.6-1.0) Estimated GFR (Cockcroft-Gault) 65.2 Glucose Level 117mg/dL (70-99) Calcium Level 9.0mg/dL (8.5-10.1) Assessment and Plan Assessmemt and Plan Problems Medical Problems: (1) Abdominal pain Status: Acute Problems: Comment Review of Relevant I have reviewed the following items jennifer (where applicable) has been applied. Labs Laboratory Tests Test 06/25/16 13:20 06/25/16 13:40 06/25/16 18:40 06/26/16 00:30 White Blood Count 6.2x10^3/uL (4.0-11.0) Red Blood Count 4.81x10^6/uL (3.50-5.40) Hemoglobin 15.0g/dL (12.0-15.5) Hematocrit 44.1% (36.0-47.0) Mean Corpuscular Volume 92fL (79-100) Mean Corpuscular Hemoglobin 31pg (25-35) Mean Corpuscular Hemoglobin Concent 34g/dL (31-37) Red Cell Distribution Width 13.2% (11.5-14.5) Platelet Count 186x10^3/uL (140-400) Neutrophils (%) (Auto) 62% (31-73) Lymphocytes (%) (Auto) 26% (24-48) Monocytes (%) (Auto) 11% (0-9) Eosinophils (%) (Auto) 1% (0-3) Basophils (%) (Auto) 1% (0-3) Neutrophils # (Auto) 3.8x10^3uL (1.8-7.7) Lymphocytes # (Auto) 1.6x10^3/uL (1.0-4.8) Monocytes # (Auto) 0.7x10^3/uL (0.0-1.1) Eosinophils # (Auto) 0.0x10^3/uL (0.0-0.7) Basophils # (Auto) 0.0x10^3/uL (0.0-0.2) Sodium Level 138mmol/L (136-145) Potassium Level 3.5mmol/L (3.5-5.1) Chloride Level 99mmol/L (98-107) Carbon Dioxide Level 29mmol/L (21-32) Anion Gap 10 (6-14) Blood Urea Nitrogen 8mg/dL (7-20) Creatinine 0.9mg/dL (0.6-1.0) Estimated GFR (Cockcroft-Gault) 65.2 Glucose Level 109mg/dL (70-99) Lactic Acid Level 1.8mmol/L (0.4-2.0) Calcium Level 9.3mg/dL (8.5-10.1) Total Bilirubin 0.9mg/dL (0.2-1.0) Direct Bilirubin 0.2mg/dL (0.0-0.2) Aspartate Amino Transf (AST/SGOT) 50U/L (15-37) Alanine Aminotransferase (ALT/SGPT) 69U/L (14-59) Alkaline Phosphatase 88U/L (46-116) Total Protein 7.7g/dL (6.4-8.2) Albumin 4.2g/dL (3.4-5.0) Lipase 114U/L (73-393) Stool Occult Blood Negative (NEG) Clostridium difficile Toxin (PCR) Positive (Negative) Urine Collection Type Unknown Urine Color Yellow Urine Clarity Clear Urine pH 7.0 Urine Specific [place] 1.020 Urine Protein Negativemg/dL (NEG-TRACE) Urine Glucose (UA) Negativemg/dL (NEG) Urine Ketones (Stick) Negativemg/dL (NEG) Urine Blood Negative (NEG) Urine Nitrite Negative (NEG) Urine Bilirubin Negative (NEG) Urine Urobilinogen Dipstick 0.2mg/dL (0.2 mg/dL) Urine Leukocyte Esterase Small (NEG) Urine RBC 0/HPF (0-2) Urine WBC 1-4/HPF (0-4) Urine Squamous Epithelial Cells Mod/LPF Urine Bacteria Few/HPF (0-FEW) Urine Mucus Slight/LPF Test 06/26/16 03:47 White Blood Count 6.0x10^3/uL (4.0-11.0) Red Blood Count 4.51x10^6/uL (3.50-5.40) Hemoglobin 13.8g/dL (12.0-15.5) Hematocrit 41.8% (36.0-47.0) Mean Corpuscular Volume 93fL (79-100) Mean Corpuscular Hemoglobin 31pg (25-35) Mean Corpuscular Hemoglobin Concent 33g/dL (31-37) Red Cell Distribution Width 13.3% (11.5-14.5) Platelet Count 160x10^3/uL (140-400) Neutrophils (%) (Auto) 51% (31-73) Lymphocytes (%) (Auto) 34% (24-48) Monocytes (%) (Auto) 13% (0-9) Eosinophils (%) (Auto) 2% (0-3) Basophils (%) (Auto) 1% (0-3) Neutrophils # (Auto) 3.1x10^3uL (1.8-7.7) Lymphocytes # (Auto) 2.0x10^3/uL (1.0-4.8) Monocytes # (Auto) 0.8x10^3/uL (0.0-1.1) Eosinophils # (Auto) 0.1x10^3/uL (0.0-0.7) Basophils # (Auto) 0.0x10^3/uL (0.0-0.2) Sodium Level 144mmol/L (136-145) Potassium Level 3.7mmol/L (3.5-5.1) Chloride Level 106mmol/L (98-107) Carbon Dioxide Level 30mmol/L (21-32) Anion Gap 8 (6-14) Blood Urea Nitrogen 8mg/dL (7-20) Creatinine 0.9mg/dL (0.6-1.0) Estimated GFR (Cockcroft-Gault) 65.2 Glucose Level 117mg/dL (70-99) Calcium Level 9.0mg/dL (8.5-10.1) Laboratory Tests Test 06/25/16 13:20 06/25/16 13:40 06/25/16 18:40 06/26/16 00:30 White Blood Count 6.2x10^3/uL (4.0-11.0) Red Blood Count 4.81x10^6/uL (3.50-5.40) Hemoglobin 15.0g/dL (12.0-15.5) Hematocrit 44.1% (36.0-47.0) Mean Corpuscular Volume 92fL (79-100) Mean Corpuscular Hemoglobin 31pg (25-35) Mean Corpuscular Hemoglobin Concent 34g/dL (31-37) Red Cell Distribution Width 13.2% (11.5-14.5) Platelet Count 186x10^3/uL (140-400) Neutrophils (%) (Auto) 62% (31-73) Lymphocytes (%) (Auto) 26% (24-48) Monocytes (%) (Auto) 11% (0-9) Eosinophils (%) (Auto) 1% (0-3) Basophils (%) (Auto) 1% (0-3) Neutrophils # (Auto) 3.8x10^3uL (1.8-7.7) Lymphocytes # (Auto) 1.6x10^3/uL (1.0-4.8) Monocytes # (Auto) 0.7x10^3/uL (0.0-1.1) Eosinophils # (Auto) 0.0x10^3/uL (0.0-0.7) Basophils # (Auto) 0.0x10^3/uL (0.0-0.2) Sodium Level 138mmol/L (136-145) Potassium Level 3.5mmol/L (3.5-5.1) Chloride Level 99mmol/L (98-107) Carbon Dioxide Level 29mmol/L (21-32) Anion Gap 10 (6-14) Blood Urea Nitrogen 8mg/dL (7-20) Creatinine 0.9mg/dL (0.6-1.0) Estimated GFR (Cockcroft-Gault) 65.2 Glucose Level 109mg/dL (70-99) Lactic Acid Level 1.8mmol/L (0.4-2.0) Calcium Level 9.3mg/dL (8.5-10.1) Total Bilirubin 0.9mg/dL (0.2-1.0) Direct Bilirubin 0.2mg/dL (0.0-0.2) Aspartate Amino Transf (AST/SGOT) 50U/L (15-37) Alanine Aminotransferase (ALT/SGPT) 69U/L (14-59) Alkaline Phosphatase 88U/L (46-116) Total Protein 7.7g/dL (6.4-8.2) Albumin 4.2g/dL (3.4-5.0) Lipase 114U/L (73-393) Stool Occult Blood Negative (NEG) Clostridium difficile Toxin (PCR) Positive (Negative) Urine Collection Type Unknown Urine Color Yellow Urine Clarity Clear Urine pH 7.0 Urine Specific [place] 1.020 Urine Protein Negativemg/dL (NEG-TRACE) Urine Glucose (UA) Negativemg/dL (NEG) Urine Ketones (Stick) Negativemg/dL (NEG) Urine Blood Negative (NEG) Urine Nitrite Negative (NEG) Urine Bilirubin Negative (NEG) Urine Urobilinogen Dipstick 0.2mg/dL (0.2 mg/dL) Urine Leukocyte Esterase Small (NEG) Urine RBC 0/HPF (0-2) Urine WBC 1-4/HPF (0-4) Urine Squamous Epithelial Cells Mod/LPF Urine Bacteria Few/HPF (0-FEW) Urine Mucus Slight/LPF Test 06/26/16 03:47 White Blood Count 6.0x10^3/uL (4.0-11.0) Red Blood Count 4.51x10^6/uL (3.50-5.40) Hemoglobin 13.8g/dL (12.0-15.5) Hematocrit 41.8% (36.0-47.0) Mean Corpuscular Volume 93fL (79-100) Mean Corpuscular Hemoglobin 31pg (25-35) Mean Corpuscular Hemoglobin Concent 33g/dL (31-37) Red Cell Distribution Width 13.3% (11.5-14.5) Platelet Count 160x10^3/uL (140-400) Neutrophils (%) (Auto) 51% (31-73) Lymphocytes (%) (Auto) 34% (24-48) Monocytes (%) (Auto) 13% (0-9) Eosinophils (%) (Auto) 2% (0-3) Basophils (%) (Auto) 1% (0-3) Neutrophils # (Auto) 3.1x10^3uL (1.8-7.7) Lymphocytes # (Auto) 2.0x10^3/uL (1.0-4.8) Monocytes # (Auto) 0.8x10^3/uL (0.0-1.1) Eosinophils # (Auto) 0.1x10^3/uL (0.0-0.7) Basophils # (Auto) 0.0x10^3/uL (0.0-0.2) Sodium Level 144mmol/L (136-145) Potassium Level 3.7mmol/L (3.5-5.1) Chloride Level 106mmol/L (98-107) Carbon Dioxide Level 30mmol/L (21-32) Anion Gap 8 (6-14) Blood Urea Nitrogen 8mg/dL (7-20) Creatinine 0.9mg/dL (0.6-1.0) Estimated GFR (Cockcroft-Gault) 65.2 Glucose Level 117mg/dL (70-99) Calcium Level 9.0mg/dL (8.5-10.1) Medications Current Medications Sodium Chloride (Iv Sodium Chloride 0.9% 1000ml Bag) 1,000 ml @ 1,000 mls/hr 1X ONCE IV Last administered on 06/25/16 14:00; Start 06/25/16 at 13:45; Stop 06/25/16 at 14:44; Status DC Pantoprazole Sodium (Protonix Vial) 80 mg 1X ONCE IVP Last administered on 14:00; Start 06/25/16 at 13:45; Stop 06/25/16 at 13:46; Status DC Iohexol (Omnipaque 300 Mg/ml) 75 ml 1X ONCE IV Last administered on 06/25/16 14:15; Start 06/25/16 at 14:15; Stop 06/25/16 at 14:16; Status DC Fentanyl Citrate (Fentanyl 2ml Vial) 50 mcg 1X ONCE IV Last administered on 14:31; Start 06/25/16 at 14:15; Stop 06/25/16 at 14:16; Status DC Ondansetron HCl (Zofran) 4 mg PRN Q8HRS PRN IV NAUSEA/VOMITING; Start 06/25/16 at 16:00; Stop 06/25/16 at 18:59; Status DC Fentanyl Citrate (Fentanyl 2ml Vial) 50 mcg PRN Q2HR PRN IV PAIN Last administered on 06/25/16 22:13; Start 06/25/16 at 16:00; Stop 06/26/16 at 15:59 Pneumococcal Polyvalent Vaccine (Do NOT chart on this placeholder) 1 each 1X ONCE MC ; Start 06/25/16 at 18:15; Stop 06/25/16 at 18:16; Status UNV Pneumococcal Polyvalent Vaccine (Pneumovax 23) 0.5 ml ONCE ONCE VAX IM Last administered on 06/25/16 21:56; Start 06/25/16 at 19:00; Stop 06/25/16 at 19:01 ; Status DC Ondansetron HCl (Zofran) 4 mg PRN Q6HRS PRN IV NAUSEA/VOMITING; Start 06/25/16 at 18:58 Acetaminophen (Tylenol) 650 mg PRN Q6HRS PRN PO MILD PAIN / TEMP; Start at 19:00 Amlodipine Besylate (Norvasc) 5 mg DAILY PO Last administered on 06/26/16 09: 56; Start 06/26/16 at 09:00 Aspirin (Ecotrin) 81 mg DAILY PO ; Start 06/26/16 at 09:00; Stop 06/26/16 at 09: 00; Status DC Atorvastatin Calcium (Lipitor) 40 mg HS PO Last administered on 06/25/16 21:51 ; Start 06/25/16 at 21:00 Gabapentin (Neurontin) 300 mg BID PO Last administered on 06/26/16 09:55; Start 06/25/16 at 21:00 Hydrochlorothiazide (Hydrodiuril) 25 mg DAILY PO Last administered on 09:56; Start 06/26/16 at 09:00 Acetaminophen/ Hydrocodone Bitart (Lortab 5/325) 1 tab PRN TID PRN PO PAIN Last administered on 06/26/16 10:05; Start 06/25/16 at 19:00 Levothyroxine Sodium (Synthroid) 137 mcg DAILYAC PO Last administered on 09:56; Start 06/26/16 at 07:30 Acetaminophen (Tylenol) 1,000 mg QHS PO Last administered on 06/25/16 21:52; Start 06/25/16 at 21:00 Calcium/Vitamin D (Oscal D 500mg/ 200uts) 1 tab DAILY PO Last administered on 10:02; Start 06/26/16 at 08:00 Citalopram Hydrobromide (Celexa) 40 mg DAILY PO Last administered on 06/26/16 09:55; Start 06/26/16 at 09:00 Multivitamins (Thera M Plus) 1 tab DAILY PO Last administered on 06/26/16 09: 56; Start 06/26/16 at 09:00 Pantoprazole Sodium (Protonix) 40 mg DAILYAC PO Last administered on 06/26/16 09:56; Start 06/25/16 at 19:15 Diphenhydramine HCl (Benadryl) 50 mg QHS PO Last administered on 06/25/16t 21: 52; Start 06/25/16 at 21:00 Lidocaine (Lidoderm) 1 patch DAILY TD ; Start 06/26/16 at 09:00 Nicotine (Nicoderm Cq 21mg) 1 patch PRN DAILY PRN TD SMOKING CESSATION; Start 06/25/16 at 19:45 Iohexol (Omnipaque 350 Mg/ml) 95 ml 1X ONCE IV ; Start 06/26/16 at 09:30; Stop 06/26/16 at 09:31; Status DC Info (Do NOT chart on this entry -- for MONITORING) 1 each PRN DAILY PRN MC SEE COMMENTS; Start 06/26/16 at 09:00; Stop 06/28/16 at 08:59 Metronidazole (Flagyl) 250 mg Q8HRS PO ; Start 06/26/16 at 14:00; Status UNV Active Scripts Active Reported One Daily Women's (Multivit With Calcium,Iron,Min) 1 Each Tablet 1 Each PO DAILY Caltrate 600 + D Tablet (Calcium Carbonate/Vitamin D3) 1 Each Tablet 1 Each PO DAILY Aspir 81 (Aspirin) 81 Mg Tablet. 81 Mg PO DAILY Hydrocodone-Apap 5-325 (Hydrocodone Bit/Acetaminophen) 1 Each Tablet 1 Tab PO PRN TID PRN Gabapentin 300 Mg Capsule 300 Mg PO BID Citalopram Hbr (Citalopram Hydrobromide) 40 Mg Tablet 40 Mg PO DAILY Amlodipine Besylate 5 Mg Tablet 5 Mg PO DAILY Levothyroxine Sodium 137 Mcg Tablet 137 Mcg PO DAILYAC Atorvastatin Calcium 40 Mg Tablet 40 Mg PO HS Omeprazole 20 Mg Tablet. 20 Mg PO BID Hydrochlorothiazide Tablet (Hydrochlorothiazide) 25 Mg Tablet 25 Mg PO DAILY Acetaminophen Pm Caplet (Acetaminophen/Diphenhydramine) 1 Each Tablet 2 Tab PO HS Vitals/I & O Vital Sign - Last 24 Hours 06/25/16 06/25/16 06/25/16 06/25/16 13:45 14:45 15:45 17:00 Temp 97.7 97.7 Pulse 78 82 83 67 Resp 18 18 16 20 B/P 133/80 141/79 124/78 144/82 Pulse Ox 96 96 97 93 O2 Delivery Room Air Room Air Room Air Room Air 06/25/16 06/25/16 06/25/16 06/25/16 17:00 17:55 19:00 20:00 Temp 97.7 97.4 97.7 97.4 Pulse 67 78 Resp 20 18 B/P 144/82 151/87 Pulse Ox 93 95 O2 Delivery Room Air Room Air Room Air Room Air 06/25/16 06/25/16 06/25/16 06/26/16 22:13 22:43 23:00 03:00 Temp 96.7 97.2 96.7 97.2 Pulse 79 63 Resp 20 18 18 B/P 146/82 115/63 Pulse Ox 95 90 94 O2 Delivery Room Air Room Air Room Air Room Air 06/26/16 06/26/16 06/26/16 06/26/16 07:00 07:30 09:56 10:05 Temp 98.8 98.8 Pulse 85 85 Resp 18 16 B/P 137/81 137/81 Pulse Ox 94 O2 Delivery Room Air Room Air Room Air 06/26/16 11:00 Temp 97.6 97.6 Pulse 76 Resp 18 B/P 142/66 Pulse Ox 94 O2 Delivery Room Air Intake and Output 06/25/16 06/25/16 06/26/16 15:00 23:00 07:00 Intake Total 1000 ml 670 ml Output Total 500 ml Balance 1000 ml 170 ml TAMMY AMBROSE MD Jun 26, 2016 13:18
[2016-06-26 15:00] VITALS: BP 129/65
[2016-06-26] MEDS: METRONIDAZOLE 250 MG TABLET PO SCH ×2 (15:12→21:11)
[2016-06-26 19:50] VITALS: BP 152/84
[2016-06-26] MEDS: DIPHENHYDRAMINE HCL 25 MG CAPSULE PO SCH (21:10)
[2016-06-26] MEDS: ATORVASTATIN CALCIUM 40 MG TABLET. PO SCH (21:10)
[2016-06-26] MEDS: ACETAMINOPHEN 500 MG TABLET PO SCH (21:11)
[2016-06-26 22:53] VITALS: BP 154/75
[2016-06-27 02:55] VITALS: BP 154/95
--- NOTE | 2016-06-27 03:15 | CONS ---
DATE OF CONSULTATION: 06/26/2016 CLINICAL HISTORY: This is a 56-year-old obese smoking female who was admitted for evaluation of abdominal pain. 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 There is reconstitution of the external iliac arteries with patency of the common femoral arteries as well. The patient does not relate pain at rest. She has noticed no ischemic changes of the feet. She is able to get through her daily routine without too much difficulty. She has had prior iliac stents placed approximately 12 years ago. She continues to smoke heavily. She has no history of stroke or ID. She is a type 2 diabetic. PAST MEDICAL HISTORY: Significant for depression and low back pain. PAST SURGICAL HISTORY: As above. SOCIAL HISTORY: She continues to smoke 1 pack of cigarettes per day. She appears to be . REVIEW OF SYSTEMS: Twelve-point review of systems is obtained. Other than claudication that occurs at about 1/2 block, review of systems is negative. PHYSICAL EXAMINATION: GENERAL: The patient is obese. She is in no distress. NECK: Carotids are 2+. ABDOMEN: Obese. EXTREMITIES: She has absent femoral, popliteal and pedal pulses. Both feet are warm and pink. She has a prior amputated right great toe with no skin changes or ulcers. VITAL SIGNS: Blood pressure is 140/80, heart rate is 67. LABORATORY DATA: Creatinine is 0.9. IMPRESSION: 1. 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 She appears to be tolerating this fairly well. 2. Tobaccoism. 3. Obesity. 4. Abdominal pain, which appears to be resolving. 5. Melena, which is being evaluated. RECOMMENDATIONS: I reviewed the CT angiogram. She would be a candidate for aorto-bilateral external iliac or femoral bypass. This would require a suprarenal clamp. ____ The said operation, the risks and benefits were explained. She is currently not having lifestyle limiting type symptoms. Therefore, she is not inclined to proceed at this time. I recommend that she be continued to be evaluated for melena and that we can see her in the office for followup to discuss further options. I strongly discouraged her from smoking. Thank you for allowing me to evaluate her. RADHA HUNTLEY MD DR: PIPO/ok JOB#: [id number] / [id number]
[2016-06-27] MEDS: METRONIDAZOLE 250 MG TABLET PO SCH ×3 (06:05→21:26)
[2016-06-27 07:00] VITALS: BP 126/59
--- NOTE | 2016-06-27 07:33 | PDOC ---
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 supportive care. History of Present Illness History of Present Illness pain 4/10 diarrhea, time 2 no fever no chills. Vitals Vitals Vital Signs Date Time Temp Pulse Resp B/P Pulse Ox O2 Delivery O2 Flow Rate FiO2 06/27/16 02:55 97.5 72 17 154/95 93 Room Air 97.5 Physical Exam General: Alert, Oriented X3, Cooperative, No acute distress Heart: Normal S1 Lungs: Clear Abdomen: Normal bowel sounds, Soft, No tenderness, No hepatosplenomegaly, No masses Extremities: No clubbing, No cyanosis, No edema, Normal pulses, No tenderness/ swelling Skin: No rashes, No breakdown, No significant lesion Assessment and Plan Assessmemt and Plan Problems Medical Problems: (1) Abdominal pain Status: Acute Problems: Comment Review of Relevant I have reviewed the following items jennifer (where applicable) has been applied. Labs Laboratory Tests Test 06/25/16 13:20 06/25/16 13:40 06/25/16 18:40 06/26/16 00:30 White Blood Count 6.2x10^3/uL (4.0-11.0) Red Blood Count 4.81x10^6/uL (3.50-5.40) Hemoglobin 15.0g/dL (12.0-15.5) Hematocrit 44.1% (36.0-47.0) Mean Corpuscular Volume 92fL (79-100) Mean Corpuscular Hemoglobin 31pg (25-35) Mean Corpuscular Hemoglobin Concent 34g/dL (31-37) Red Cell Distribution Width 13.2% (11.5-14.5) Platelet Count 186x10^3/uL (140-400) Neutrophils (%) (Auto) 62% (31-73) Lymphocytes (%) (Auto) 26% (24-48) Monocytes (%) (Auto) 11% (0-9) Eosinophils (%) (Auto) 1% (0-3) Basophils (%) (Auto) 1% (0-3) Neutrophils # (Auto) 3.8x10^3uL (1.8-7.7) Lymphocytes # (Auto) 1.6x10^3/uL (1.0-4.8) Monocytes # (Auto) 0.7x10^3/uL (0.0-1.1) Eosinophils # (Auto) 0.0x10^3/uL (0.0-0.7) Basophils # (Auto) 0.0x10^3/uL (0.0-0.2) Sodium Level 138mmol/L (136-145) Potassium Level 3.5mmol/L (3.5-5.1) Chloride Level 99mmol/L (98-107) Carbon Dioxide Level 29mmol/L (21-32) Anion Gap 10 (6-14) Blood Urea Nitrogen 8mg/dL (7-20) Creatinine 0.9mg/dL (0.6-1.0) Estimated GFR (Cockcroft-Gault) 65.2 Glucose Level 109mg/dL (70-99) Lactic Acid Level 1.8mmol/L (0.4-2.0) Calcium Level 9.3mg/dL (8.5-10.1) Total Bilirubin 0.9mg/dL (0.2-1.0) Direct Bilirubin 0.2mg/dL (0.0-0.2) Aspartate Amino Transf (AST/SGOT) 50U/L (15-37) Alanine Aminotransferase (ALT/SGPT) 69U/L (14-59) Alkaline Phosphatase 88U/L (46-116) Total Protein 7.7g/dL (6.4-8.2) Albumin 4.2g/dL (3.4-5.0) Lipase 114U/L (73-393) Stool Occult Blood Negative (NEG) Clostridium difficile Toxin (PCR) Positive (Negative) Urine Collection Type Unknown Urine Color Yellow Urine Clarity Clear Urine pH 7.0 Urine Specific [place] 1.020 Urine Protein Negativemg/dL (NEG-TRACE) Urine Glucose (UA) Negativemg/dL (NEG) Urine Ketones (Stick) Negativemg/dL (NEG) Urine Blood Negative (NEG) Urine Nitrite Negative (NEG) Urine Bilirubin Negative (NEG) Urine Urobilinogen Dipstick 0.2mg/dL (0.2 mg/dL) Urine Leukocyte Esterase Small (NEG) Urine RBC 0/HPF (0-2) Urine WBC 1-4/HPF (0-4) Urine Squamous Epithelial Cells Mod/LPF Urine Bacteria Few/HPF (0-FEW) Urine Mucus Slight/LPF Test 06/26/16 03:47 White Blood Count 6.0x10^3/uL (4.0-11.0) Red Blood Count 4.51x10^6/uL (3.50-5.40) Hemoglobin 13.8g/dL (12.0-15.5) Hematocrit 41.8% (36.0-47.0) Mean Corpuscular Volume 93fL (79-100) Mean Corpuscular Hemoglobin 31pg (25-35) Mean Corpuscular Hemoglobin Concent 33g/dL (31-37) Red Cell Distribution Width 13.3% (11.5-14.5) Platelet Count 160x10^3/uL (140-400) Neutrophils (%) (Auto) 51% (31-73) Lymphocytes (%) (Auto) 34% (24-48) Monocytes (%) (Auto) 13% (0-9) Eosinophils (%) (Auto) 2% (0-3) Basophils (%) (Auto) 1% (0-3) Neutrophils # (Auto) 3.1x10^3uL (1.8-7.7) Lymphocytes # (Auto) 2.0x10^3/uL (1.0-4.8) Monocytes # (Auto) 0.8x10^3/uL (0.0-1.1) Eosinophils # (Auto) 0.1x10^3/uL (0.0-0.7) Basophils # (Auto) 0.0x10^3/uL (0.0-0.2) Sodium Level 144mmol/L (136-145) Potassium Level 3.7mmol/L (3.5-5.1) Chloride Level 106mmol/L (98-107) Carbon Dioxide Level 30mmol/L (21-32) Anion Gap 8 (6-14) Blood Urea Nitrogen 8mg/dL (7-20) Creatinine 0.9mg/dL (0.6-1.0) Estimated GFR (Cockcroft-Gault) 65.2 Glucose Level 117mg/dL (70-99) Calcium Level 9.0mg/dL (8.5-10.1) Medications Current Medications Sodium Chloride (Iv Sodium Chloride 0.9% 1000ml Bag) 1,000 ml @ 1,000 mls/hr 1X ONCE IV Last administered on 06/25/16 14:00; Start 06/25/16 at 13:45; Stop 06/25/16 at 14:44; Status DC Pantoprazole Sodium (Protonix Vial) 80 mg 1X ONCE IVP Last administered on 14:00; Start 06/25/16 at 13:45; Stop 06/25/16 at 13:46; Status DC Iohexol (Omnipaque 300 Mg/ml) 75 ml 1X ONCE IV Last administered on 06/25/16 14:15; Start 06/25/16 at 14:15; Stop 06/25/16 at 14:16; Status DC Fentanyl Citrate (Fentanyl 2ml Vial) 50 mcg 1X ONCE IV Last administered on 14:31; Start 06/25/16 at 14:15; Stop 06/25/16 at 14:16; Status DC Ondansetron HCl (Zofran) 4 mg PRN Q8HRS PRN IV NAUSEA/VOMITING; Start 06/25/16 at 16:00; Stop 06/25/16 at 18:59; Status DC Fentanyl Citrate (Fentanyl 2ml Vial) 50 mcg PRN Q2HR PRN IV PAIN Last administered on 06/25/16 22:13; Start 06/25/16 at 16:00; Stop 06/26/16 at 15:59 ; Status DC Pneumococcal Polyvalent Vaccine (Do NOT chart on this placeholder) 1 each 1X ONCE MC ; Start 06/25/16 at 18:15; Stop 06/25/16 at 18:16; Status UNV Pneumococcal Polyvalent Vaccine (Pneumovax 23) 0.5 ml ONCE ONCE VAX IM Last administered on 06/25/16 21:56; Start 06/25/16 at 19:00; Stop 06/25/16 at 19:01 ; Status DC Ondansetron HCl (Zofran) 4 mg PRN Q6HRS PRN IV NAUSEA/VOMITING; Start 06/25/16 at 18:58 Acetaminophen (Tylenol) 650 mg PRN Q6HRS PRN PO MILD PAIN / TEMP; Start at 19:00 Amlodipine Besylate (Norvasc) 5 mg DAILY PO Last administered on 06/26/16 09: 56; Start 06/26/16 at 09:00 Aspirin (Ecotrin) 81 mg DAILY PO ; Start 06/26/16 at 09:00; Stop 06/26/16 at 09: 00; Status DC Atorvastatin Calcium (Lipitor) 40 mg HS PO Last administered on 06/26/16 21:10 ; Start 06/25/16 at 21:00 Gabapentin (Neurontin) 300 mg BID PO Last administered on 06/26/16 21:10; Start 06/25/16 at 21:00 Hydrochlorothiazide (Hydrodiuril) 25 mg DAILY PO Last administered on 09:56; Start 06/26/16 at 09:00 Acetaminophen/ Hydrocodone Bitart (Lortab 5/325) 1 tab PRN TID PRN PO PAIN Last administered on 06/26/16 19:35; Start 06/25/16 at 19:00 Levothyroxine Sodium (Synthroid) 137 mcg DAILYAC PO Last administered on 09:56; Start 06/26/16 at 07:30 Acetaminophen (Tylenol) 1,000 mg QHS PO Last administered on 06/26/16 21:11; Start 06/25/16 at 21:00 Calcium/Vitamin D (Oscal D 500mg/ 200uts) 1 tab DAILY PO Last administered on 10:02; Start 06/26/16 at 08:00 Citalopram Hydrobromide (Celexa) 40 mg DAILY PO Last administered on 06/26/16 09:55; Start 06/26/16 at 09:00 Multivitamins (Thera M Plus) 1 tab DAILY PO Last administered on 06/26/16 09: 56; Start 06/26/16 at 09:00 Pantoprazole Sodium (Protonix) 40 mg DAILYAC PO Last administered on 06/26/16 09:56; Start 06/25/16 at 19:15 Diphenhydramine HCl (Benadryl) 50 mg QHS PO Last administered on 06/26/16 21: 10; Start 06/25/16 at 21:00 Lidocaine (Lidoderm) 1 patch DAILY TD ; Start 06/26/16 at 09:00 Nicotine (Nicoderm Cq 21mg) 1 patch PRN DAILY PRN TD SMOKING CESSATION; Start 06/25/16 at 19:45 Iohexol (Omnipaque 350 Mg/ml) 95 ml 1X ONCE IV ; Start 06/26/16 at 09:30; Stop 06/26/16 at 09:31; Status DC Info (Do NOT chart on this entry -- for MONITORING) 1 each PRN DAILY PRN MC SEE COMMENTS; Start 06/26/16 at 09:00; Stop 06/28/16 at 08:59 Metronidazole (Flagyl) 500 mg Q8HRS PO Last administered on 06/27/16t 06:05; Start 06/26/16 at 14:00 Active Scripts Active Reported One Daily Women's (Multivit With Calcium,Iron,Min) 1 Each Tablet 1 Each PO DAILY Caltrate 600 + D Tablet (Calcium Carbonate/Vitamin D3) 1 Each Tablet 1 Each PO DAILY Aspir 81 (Aspirin) 81 Mg Tablet. 81 Mg PO DAILY Hydrocodone-Apap 5-325 (Hydrocodone Bit/Acetaminophen) 1 Each Tablet 1 Tab PO PRN TID PRN Gabapentin 300 Mg Capsule 300 Mg PO BID Citalopram Hbr (Citalopram Hydrobromide) 40 Mg Tablet 40 Mg PO DAILY Amlodipine Besylate 5 Mg Tablet 5 Mg PO DAILY Levothyroxine Sodium 137 Mcg Tablet 137 Mcg PO DAILYAC Atorvastatin Calcium 40 Mg Tablet 40 Mg PO HS Omeprazole 20 Mg Tablet. 20 Mg PO BID Hydrochlorothiazide Tablet (Hydrochlorothiazide) 25 Mg Tablet 25 Mg PO DAILY Acetaminophen Pm Caplet (Acetaminophen/Diphenhydramine) 1 Each Tablet 2 Tab PO HS Vitals/I & O Vital Sign - Last 24 Hours 06/26/16 06/26/16 06/26/16 06/26/16 09:56 10:05 11:00 15:00 Temp 97.6 98.3 97.6 98.3 Pulse 85 76 77 Resp 16 18 18 B/P 137/81 142/66 129/65 Pulse Ox 94 96 O2 Delivery Room Air Room Air Room Air 06/26/16 06/26/16 06/26/16 06/26/16 19:35 19:35 19:50 20:35 Temp 98.4 98.4 Pulse 78 Resp 18 18 18 B/P 152/84 Pulse Ox 96 O2 Delivery Room Air Room Air Room Air Room Air 06/26/16 06/27/16 22:53 02:55 Temp 97.4 97.5 97.4 97.5 Pulse 75 72 Resp 17 B/P 154/75 154/95 Pulse Ox 96 93 O2 Delivery Room Air Room Air Intake and Output 06/26/16 06/26/16 06/27/16 15:00 23:00 07:00 Intake Total 590 ml Output Total 500 ml 900 ml 550 ml Balance -500 ml -900 ml 40 ml TAMMY AMBROSE MD Jun 27, 2016 07:33
[2016-06-27] MEDS: HYDROCHLOROTHIAZIDE 25 MG TABLET PO SCH (10:00)
[2016-06-27] MEDS: MULTIVITAMIN with MINERAL TABLET. PO SCH (10:00)
[2016-06-27] MEDS: PANTOPRAZOLE 40 MG TABLET. PO SCH (10:01)
[2016-06-27] MEDS: GABAPENTIN 300 MG CAPSULE. PO SCH ×2 (10:01→21:25)
[2016-06-27] MEDS: CALCIUM CARB/VIT D3 500/200 TABLET. PO SCH (10:02)
[2016-06-27] MEDS: LEVOTHYROXINE 137 MCG TABLET PO SCH (10:02)
[2016-06-27] MEDS: CITALOPRAM 20 MG TABLET. PO SCH (10:02)
[2016-06-27] MEDS: AMLODIPINE BESYLATE 5 MG TABLET PO SCH (10:03)
[2016-06-27] MEDS: HYDROCODONE/APAP 5/325MG TABLET. PO PRN (10:04)
[2016-06-27] MEDS: LIDOCAINE (700MG/PATCH) PATCH. TD SCH (10:06)
[2016-06-27 11:00] VITALS: BP 145/81
[2016-06-27] MEDS ORDERED: METR500T PO (11:16)
--- NOTE | 2016-06-27 13:10 | PDOC ---
Subjective: Subjective: Doing better w/ fewer stools and less pain. Tolerating PO. Feels would be beneficial to stay another day. 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 Ruvalcaba as outpt -- Improving but would like to stay another day. Continue metronidazole. Will add probiotics. OSITO MICHAEL Jun 27, 2016 13:10
[2016-06-27 15:00] VITALS: BP 123/69
[2016-06-27] MEDS: LACTOBACILLUS ACIDOPH & BULGAR 1 TABLET. PO SCH (17:44)
[2016-06-27 19:00] VITALS: BP 121/84
[2016-06-27] MEDS: DIPHENHYDRAMINE HCL 25 MG CAPSULE PO SCH (21:25)
[2016-06-27] MEDS: ACETAMINOPHEN 500 MG TABLET PO SCH (21:25)
[2016-06-27] MEDS: ATORVASTATIN CALCIUM 40 MG TABLET. PO SCH (21:26)
[2016-06-27 23:00] VITALS: BP 133/65
[2016-06-28 03:00] VITALS: BP 119/73
[2016-06-28] MEDS: METRONIDAZOLE 250 MG TABLET PO SCH ×2 (06:23→14:43)
[2016-06-28] MEDS: PANTOPRAZOLE 40 MG TABLET. PO SCH (06:23)
[2016-06-28] MEDS: LEVOTHYROXINE 137 MCG TABLET PO SCH (06:24)
[2016-06-28 07:00] VITALS: BP 124/70
[2016-06-28] MEDS: GABAPENTIN 300 MG CAPSULE. PO SCH (09:08)
[2016-06-28] MEDS: AMLODIPINE BESYLATE 5 MG TABLET PO SCH (09:09)
[2016-06-28] MEDS: LACTOBACILLUS ACIDOPH & BULGAR 1 TABLET. PO SCH (09:09)
[2016-06-28] MEDS: HYDROCHLOROTHIAZIDE 25 MG TABLET PO SCH (09:09)
[2016-06-28] MEDS: CITALOPRAM 20 MG TABLET. PO SCH (09:09)
[2016-06-28 11:00] VITALS: BP 124/78
--- NOTE | 2016-06-28 11:17 | PDOC ---
Subjective: Subjective: Better today. Still a little cramping but stools more normal. Eating well. Feels ready to DC. Objective: Vital Signs: Vital Signs Date Time Temp Pulse Resp B/P Pulse Ox O2 Delivery O2 Flow Rate FiO2 06/28/16 09:09 75 124/70 06/28/16 07:00 97.3 18 91 Room Air 97.3 PE: GEN: NAD LUNGS: CTAB HEART: RRR ABD: S/ND/NT NEURO/PSYCH: A & O 3 A/P: C Diff -on Flagyl and probiotics -abd pain better, stools improving -- Okay to DC per GI. Finish course of metronidazole. Continue probiotics. Previously discussed importance of hand hygiene, atbx avoidance if possible. Wants to follow-up w/ Dr. Jensen as outpt to discuss timing of next screening colonoscopy. OSITO MICHAEL Jun 28, 2016 11:17
[2016-06-28] MEDS: CALCIUM CARB/VIT D3 500/200 TABLET. PO SCH (11:24)
[2016-06-28] MEDS: MULTIVITAMIN with MINERAL TABLET. PO SCH (11:24)
[2016-06-28] MEDS: LIDOCAINE (700MG/PATCH) PATCH. TD SCH (11:24)
--- NOTE | 2016-06-28 23:49 | DS ---
DATE OF DISCHARGE: 06/28/2016 DISCHARGE DIAGNOSES: 1. 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 2. Clostridium difficile diarrhea. 3. Hypertension. 4. Hyperlipidemia. 5. Depression. BRIEF HOSPITAL COURSE: A 56-year-old female patient admitted to hospital for abdominal pain. She was evaluated by Vascular Surgery, Dr. Sinha and Dr. Anton. During hospitalization, the patient had imaging studies such as abdomen and pelvic CTA, which is suggestive of near occlusion of the abdominal aorta inferior to the origin of renal artery. As per Vascular Surgery, the patient can go home and follow up with Vascular Surgery as needed; however, at this time she did not need any surgery. Per patient, she had this problem for a long time and she is able to tolerate pain very well; however, she was diagnosed with C. diff colitis. During hospitalization she was started on Flagyl, symptoms have been improving. The patient has been discharged home in stable condition with antibiotics scripts. DISCHARGE EXAMINATION: GENERAL: Alert, oriented x 3. HEART: S1, S2 present. LUNGS: Anterior chest clear. ABDOMEN: Soft, nontender, no organomegaly. EXTREMITIES: No edema. DISCHARGE DISPOSITION: Home. DISCHARGE CONDITION: Stable. FOLLOWUP: With Dr. Anton as needed and PCP. MEDICATIONS: Reviewed and reconciled. Please see MRAD. A new script for Flagyl 500 mg t.i.d. was provided to the patient. DISCHARGE TIME: Total time spent for discharge is 35 minutes for patient education, counseling, and coordination of care. TAMMY AMBROSE MD DR: JOE/nts JOB#: [id number] / [id number]
[2016-06-29] MEDS ORDERED: IBUP-1007 PO (08:42)
== END 2016-06-28 15:00 | disposition home or self-care (01) | DRG 372 ==
LOC: ER 12:45 → 4 NORTH 15:44
PROVIDERS: ADMIT Internal Medicine; ATTEND Internal Medicine
DX: A04.7 Enterocolitis due to Clostridium difficile (principal); K92.1 Melena; I73.1 Thromboangiitis obliterans [Buerger's disease]; E03.9 Hypothyroidism, unspecified; E66.9 Obesity, unspecified; E78.00 Pure hypercholesterolemia, unspecified; E78.5 Hyperlipidemia, unspecified; F17.210 Nicotine dependence, cigarettes, uncomplicated; F32.9 Major depressive disorder, single episode, unspecified; G89.29 Other chronic pain; I10 Essential (primary) hypertension; K21.9 Gastro-esophageal reflux disease without esophagitis; K42.9 Umbilical hernia without obstruction or gangrene; M43.17 Spondylolisthesis, lumbosacral region; E11.51 Type 2 diabetes mellitus with diabetic peripheral angiopathy without gangrene; Z68.35 Body mass index [BMI] 35.0-35.9, adult; Z88.2 Allergy status to sulfonamides; Z90.49 Acquired absence of other specified parts of digestive tract; Z89.421 Acquired absence of other right toe(s)
CPT/HCPCS: 36415; 74174; 74177; 80048; 80076; 81001; 82274; 83605; 83690; 85027; 86850; 86900; 86901; 87086; 87324; 90732; 96361; 96374; 96375; 99406; C9113; J3010; J7030; Q0163; Q9967; 99285-25

== ENCOUNTER 2016-06-29 07:22 | Emergency (ER) | payer BC ==
[~2016-06-29] VITALS: Ht 170.2 cm; Wt 101.6 kg
[~2016-06-29 07:22] MED LIST: ACET1TAB46 PO; AMLO5TAB2 PO; ASPI-482 PO; ATOR40TA59 PO; CALC1TAB PO; CITA40TA5 PO; GABA-586 PO; HYDR-2666 PO; HYDR25TA9 PO; LEVO137T3 PO; METR500T PO; MULT-230 PO; OMEP20TA PO
[2016-06-29 07:35] VITALS: BP 143/80
--- NOTE | 2016-06-29 07:54 | PHYS DOC ---
Past Medical History Past Medical History: Arthritis, Depression, Diabetes-Type II, GERD, High Cholesterol, Hypertension, Hypothyroid, Other Additional Past Medical Histor: neuropathy; bond; Past Surgical History: Cholecystectomy, Other Additional Past Surgical Histo: right toe amputation Smokin Pack Per Day Alcohol Use: Rarely Drug Use: None Adult General Chief Complaint Chief Complaint: UPPER EXTREMITY SWELLING HPI HPI Patient is a 56 year old female who presents with left arm redness and swelling of the upper arm after IV placement. She was admitted to this hospital for abdominal pain and C. diff colitis. She was discharged home yesterday. She denies any fevers. Her PCP is Adonis Agee. Review of Systems Review of Systems Constitutional: Denies fever or chills. [] Musculoskeletal: Denies back pain or joint pain. Reports left upper arm pain and swelling. Integument: Denies rash or skin lesions. Reports left upper arm redness. Neurologic: Denies focal weakness or sensory changes. [] Allergies Allergies Allergies Coded Allergies Type Severity Reaction Last Updated Verified Sulfa (Sulfonamide Antibiotics) Allergy Intermediate hives 06/25/16 Yes Physical Exam Physical Exam Constitutional: Well developed, well nourished, no acute distress, non-toxic appearance. [] HENT: Normocephalic, atraumatic, oropharynx moist. [] Eyes: PERRLA, EOMI, conjunctiva normal, no discharge. [] Neck: Normal range of motion, no tenderness, supple, no stridor. [] Skin: Warm, dry, no rash. There is erythema of the ventral left upper arm to the antecubital fossa with mild edema. There is no lymphangitis. There is a small hematoma at the IV insertion site. Extremities: Left upper arm tenderness, ROM intact, mild edema. 2+ radial and ulnar pulses. Less than 2 second capillary refill in the fingers. Light touch sensation intact distally. Neurologic: Alert and oriented X 3, normal motor function, normal sensory function, no focal deficits noted. [] Psychologic: Affect normal, judgement normal, mood normal. [] Current Patient Data Vital Signs Vital Signs Date Time Temp Pulse Resp B/P Pulse Ox O2 Delivery O2 Flow Rate FiO2 06/29/16 07:35 97.4 95 18 94 Room Air 97.4 EKG EKG [] Radiology/Procedures Radiology/Procedures REASON: redness, swelling after IV in AC PROCEDURE: VENOUS UPPER EXTREMITY LEFT Left upper extremity venous ultrasound, 06/29/2016: History: Arm redness and swelling after IV placement Duplex evaluation of the major veins of the left upper extremity was performed including grayscale, color-flow and spectral Doppler analysis. The left internal jugular, subclavian, axillary and brachial veins are patent. There is occlusive thrombus in the basilic vein in the left upper arm. The left cephalic, ulnar and radial veins are patent. IMPRESSION: Occlusive thrombus in the basilic vein in the left upper arm. Course & Med Decision Making Course & Med Decision Making Pertinent Labs and Imaging studies reviewed. (See chart for details) Patient presents with left upper arm redness and swelling after recent IV placement. Ultrasound shows thrombus of the basilic vein, which is a superficial vein. Patient is instructed to apply warm compresses to the arm. She is given a prescription for ibuprofen 600 mg. She is instructed to follow with her PCP in the next 1-2 days. She is instructed to return to the emergency department if she has worsening of the redness, swelling, or pain. She verbalizes understanding and agrees with plan. Dragon Disclaimer Dragon Disclaimer This electronic medical record was generated, in whole or in part, using a voice recognition dictation system. Departure Departure Impression: Primary Impression: Superficial venous thrombosis of left upper extremity Disposition: 01 HOME, SELF-CARE Condition: STABLE Referrals: ADONIS AGEE GRAPE PRUNER (PCP) Patient Instructions: Venous Thromboembolism Additional Instructions: You were seen for a blood clot in the superficial veins of your left arm. The clot is not in the deep veins, so it is not life-threatening. Please take the prescribed medication to decrease inflammation. Please apply warm compresses. Please follow up with your primary care provider in the next 1-2 days. Return to the emergency department if you have worsening of the swelling, redness, or pain, or if you have any new or concerning symptoms. Scripts Ibuprofen 600 Mg Qctryb726 Mg PO PRN Q6HRS PRN INFLAMMATION #20 TAB Prov:JANIYA WRIGHT 06/29/16 JANIYA WRIGHT Jun 29, 2016 07:54
--- NOTE | 2016-06-29 08:24 | RAD ---
Left upper extremity venous ultrasound, 06/29/2016: History: Arm redness and swelling after IV placement Duplex evaluation of the major veins of the left upper extremity was performed including grayscale, color-flow and spectral Doppler analysis. The left internal jugular, subclavian, axillary and brachial veins are patent. There is occlusive thrombus in the basilic vein in the left upper arm. The left cephalic, ulnar and radial veins are patent. IMPRESSION: Occlusive thrombus in the basilic vein in the left upper arm.
[2016-06-29] MEDS ORDERED: IBUP-1007 PO (08:42)
== END 2016-06-29 09:19 | disposition home or self-care (01) ==
LOC: ER 07:22
DX: I82.612 Acute embolism and thrombosis of superficial veins of left upper extremity (principal); M19.90 Unspecified osteoarthritis, unspecified site; F32.9 Major depressive disorder, single episode, unspecified; E11.40 Type 2 diabetes mellitus with diabetic neuropathy, unspecified; K21.9 Gastro-esophageal reflux disease without esophagitis; E78.00 Pure hypercholesterolemia, unspecified; I10 Essential (primary) hypertension; E03.9 Hypothyroidism, unspecified; F17.200 Nicotine dependence, unspecified, uncomplicated; Z88.2 Allergy status to sulfonamides; Z89.421 Acquired absence of other right toe(s)
CPT/HCPCS: 93971; 99284-25

== ENCOUNTER → 2016-08-11 | Day surgery (SDC) | payer BC ==
[~2016-08-11] MED LIST changes: +HYDROmorphone 2 MG/ML VIAL IV PRN; +IBUP-1007 PO; +IV RINGERS,LACTATED 1000ML 1,000 ML IV SCH; +LIDOCAINE 1% 1 ML SYRINGE. ID PRN; +LIDOCAINE 2% PF Vial for OR 5 ML VIAL. ONE; +MORPHINE SULFATE 2 MG/ML DISP.SYRIN. IV PRN; +PROCHLORPERAZINE 10 MG/2 ML VIAL. IV PRN; +PROPOFOL 40 ML IV ONE; +fentaNYL PF VIAL 100 MCG/2 ML VIAL IV PRN
[2016-08-11 09:40] VITALS: BP 138/82
--- NOTE | 2016-08-15 10:29 | PATHOLOGY ---
PATHOLOGY REPORT * * * * * * * * FINAL DIAGNOSIS: Colon, transverse, biopsy: - Hyperplastic polyps, four fragments. REPORT ELECTRONICALLY SIGNED BY: Montrell Santos M.D. DATE/TIME: 08/15/2016 10:28 * * * * * * * * GROSS PATHOLOGY: Received in formalin labeled "Unique Soler, transverse colon polyp," and additionally labeled interposition as "transverse colon polyps," are 4 segments of crow soft tissue measuring 1.4 x 0.5 x 0.4 cm in aggregate dimensions and ranging from 0.2 to 1.4 cm in maximum dimension. The specimen is submitted entirely in cassette A1. (KAH; 08/12/2016) INITIAL CPT CODE(S): A; 17181 Professional services performed by [facility], [facility] [place] [address]. Technical services performed by [facility], [address] [place] [address], [address] [address]. SPECIMEN(S) RECEIVED: A.Transverse colon polyps CLINICAL HISTORY: [facility] PATIENT: UNIQUE SOLER /AGE: 205/23/1960 (Age: 56) PATIENT #: [id number] ALT CASE #: SPECIMEN COLLECTION DATE: 08/11/2016 SPECIMEN RECEIVED DATE: 08/11/2016 [facility] - [facility] [place] [address] - PHONE: [phone] * * * END OF REPORT * * *
== END | disposition home or self-care (01) ==
LOC: ENDOS 07:53
PROVIDERS: ATTEND Internal Medicine Gastroenterology
DX: D12.3 Benign neoplasm of transverse colon (principal); K64.0 First degree hemorrhoids; E11.9 Type 2 diabetes mellitus without complications; E78.00 Pure hypercholesterolemia, unspecified; I10 Essential (primary) hypertension; F32.9 Major depressive disorder, single episode, unspecified; M19.90 Unspecified osteoarthritis, unspecified site; Z87.39 Personal history of other diseases of the musculoskeletal system and connective tissue; Z90.49 Acquired absence of other specified parts of digestive tract
CPT/HCPCS: 45380; 45385; J2704; 88305